=== PATIENT | male | born 1995 | race Caucasian/White ===

== ENCOUNTER → 2017-08-24 | Outpatient (CLI) | payer OTHER ==
--- NOTE | 2017-08-24 13:53 | MR ---
EXAMINATION TYPE: MR brain wo con DATE OF EXAM: 08/24/2017 COMPARISON: 10/16/2010 HISTORY: Cerebellar Ataxia T1-weighted sagittal, T2, FLAIR, and diffusion axial, and T2 coronal coronal views of the brain are s ubmitted. There is no evidence of acute ischemia. The ventricles, basal cisterns, and sulci overlying the conv exities are consistent with the patient's age. There is no mass effect. Craniocervical junction maintained. Sella turcica has a normal appearance. No cerebellopontine angle mass. Changes of chronic sinusitis noted. Nasal septal deviation noted. 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 This is increased in size from the previous exam. Cerebellum has a stable appearance relative to the prior exam. No definite abnormal signal. IMPRESSION: 1. No acute intracranial process. 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
== END | disposition home or self-care (01) ==
LOC: RADMRIMAIN 12:09
PROVIDERS: ATTEND Psychiatry & Neurology Neurology
DX: E34.8 Other specified endocrine disorders (principal); G11.9 Hereditary ataxia, unspecified
CPT/HCPCS: 36415; 70551; 84210

== ENCOUNTER 2022-12-21 15:23 | Inpatient (IN) | payer MEDICARE, OTHER ==
--- NOTE | 2022-12-21 16:59 | ED ---
General Adult HPI - General Chief complaint: Wound/Laceration Stated complaint: R 2nd toe ulcer Time Seen by Provider: 12/21/22 16:41 Source: patient, RN notes reviewed Mode of arrival: wheelchair Limitations: physical limitation - History of Present Illness Initial comments: 27-year-old male presents to the emergency department with chief complaint of ulcer on right second toe that his been there for many months. He states that he saw a feeder operator automatic today who sent him to the emergency department for evaluation of bone involvement. He reports that he occasionally gets shooting pains up his leg starting from the toes. He states that he has been on antibiotics for the past 20 days. Patient has past medical history of Friedreich's ataxia. Patient states that he is a non-diabetic. Denies fever, chills. - Related Data Home Medications Medication Instructions Recorded Confirmed Aspirin EC [Ecotrin Low Dose] 243 mg PO TID 12/21/22 12/21/22 Allergies Allergy/AdvReac Type Severity Reaction Status Date / Time No Known Allergies Allergy Verified 12/21/22 19:14 Review of Systems ROS Statement: Those systems with pertinent positive or pertinent negative responses have been documented in the HPI. ROS Other: All systems not noted in ROS Statement are negative. Past Medical History Additional Past Medical History / Comment(s): ataxia, wheelchair bound History of Any Multi-Drug Resistant Organisms: None Reported Past Surgical History: No Surgical Hx Reported Past Psychological History: ADD/ADHD, Bipolar Smoking Status: Current every day smoker Past Alcohol Use History: Occasional Past Drug Use History: Marijuana General Exam Limitations: physical limitation General appearance: alert, in no apparent distress Head exam: Present: atraumatic, normocephalic, normal inspection Eye exam: Present: normal appearance, PERRL, EOMI. Absent: scleral icterus, conjunctival injection, periorbital swelling ENT exam: Present: normal exam, mucous membranes moist Neck exam: Present: normal inspection. Absent: tenderness, meningismus, lymphadenopathy Respiratory exam: Present: normal lung sounds bilaterally. Absent: respiratory distress, wheezes, rales, rhonchi, stridor Cardiovascular Exam: Present: regular rate, normal rhythm, normal heart sounds. Absent: systolic murmur, diastolic murmur, rubs, gallop, clicks Extremities exam: Present: tenderness, pedal edema, other (Ulcer to right second toe medially, DP and PT pulses equal bilaterally, pitting edema in bilateral low er extremities). Absent: calf tenderness Neurological exam: Present: alert, oriented X3 Psychiatric exam: Present: normal affect, normal mood Skin exam: Present: warm, dry, other (Ulcer to right second toe) Course Vital Signs 12/21/22 16:28 Temperature 98.5 F Pulse Rate 114 H Respiratory 18 Rate Blood Pressure 136/82 O2 Sat by Pulse 97 Oximetry Medical Decision Making - Medical Decision Making Was pt. sent in by a medical professional or institution (, KRISTOFER, DOCUMENT REVIEW SPECIALIST, urgent care, hospital, or snf...) When possible be specific @ -No Did you speak to anyone other than the patient for history (EMS, parent, family, police, friend...)? What history was obtained from this source @ -No Did you review nursing and triage notes (agree or disagree)? Why? @ -I reviewed and agree with nursing and triage notes Were old charts reviewed (outside hosp., previous admission, EMS record, old EKG, old radiological studies, urgent care reports/EKG's, snf records)? Report findings @ -No old charts were reviewed Differential Diagnosis (chest pain, altered mental status, abdominal pain women, abdominal pain men, vaginal bleeding, weakness, fever, dyspnea, syncope, headache, dizziness, GI bleed, back pain, seizure, CVA, palpatations, mental health, musculoskeletal)? @ -Differential Musculoskeletal Muscular strain, contusion, ligament sprain, fracture, arthritis, septic arthritis, bursitis, cellulitis, muscle spasm, nerve compression, DVT, arterial occlusion, herpes zoster, electrolyte abnormality, tumor.... This is not meant to be in all inclusive list EKG interpreted by me (3pts min.). @ -none X-rays interpreted by me (1pt min.). @ -[X-ray foot showed soft tissue swelling, no evidence of acute fracture CT interpreted by me (1pt min.). @ -None done U/S interpreted by me (1pt. min.). @ -None done What testing was considered but not performed or refused? (CT, X-rays, U/S, labs)? Why? @ -None What meds were considered but not given or refused? Why? @ -None Did you discuss the management of the patient with other professionals (professionals i.e. , KRISTOFER, DOCUMENT REVIEW SPECIALIST, lab, RT, psych nurse, psychosocial rehabilitation counselor, machine joiner cementer, teacher, optics technical officer, corrections caseworker)? Give summary @ -management discussed with Dr. Suarez who is accepting of the admission with IV antibiotics, orthopedics, and infectious disease on consult Was smoking cessation discussed for >3mins.? @ -No Was critical care preformed (if so, how long)? @ -No Were there social determinants of health that impacted care today? How? (Homelessness, low income, unemployed, alcoholism, drug addiction, transportation, low edu. Level, literacy, decrease access to med. care, detention, rehab)? @ -No Was there de-escalation of care discussed even if they declined (Discuss DNR or withdrawal of care, Hospice)? DNR status @ -No What co-morbidities impacted this encounter? (DM, HTN, Smoking, COPD, CAD, Cancer, CVA, ARF, Chemo, Hep., AIDS, mental health diagnosis, sleep apnea, morbid obesity)? @ -None Was patient admitted / discharged? Hospital course, mention meds given and ro jeanette, prescriptions, significant lab abnormalities, going to OR and other pertinent info. @ -Admitted. Patient presented to the emergency department with chief complaint of right second toe ulcer that has been there for months. Patient reports that he has been on oral antibiotics for the past 20 days. He saw his feeder operator automatic today who recommended him to come evaluated in the emergency department for this ulcer with the concern of osteomyelitis. CBC, CMP within normal limits. X-ray showed no obvious bony erosion. Patient is failing PO antibiotics. Case discussed with Dr. Suarez is accepting of the admission for IV antibiotics. He recommended orthopedic consult and infectious disease consult. Undiagnosed new problem with uncertain prognosis? @ -No Drug Therapy requiring intensive monitoring for toxicity (Heparin, Nitro, Insulin, Cardizem)? @ -No Were any procedures done? @ -No Diagnosis/symptom? @ - nonhealing ulcer right 2nd toe Acute, or Chronic, or Acute on Chronic? @ -acute on chronic Uncomplicated (without systemic symptoms) or Complicated (systemic symptoms)? @ -uncomplicated Side effects of treatment? @ -No Exacerbation, Progression, or Severe Exacerbation? @ -No Poses a threat to life or bodily function? How? (Chest pain, USA, SC, pneumonia, PE, COPD, DKA, ARF, appy, cholecystitis, CVA, Diverticulitis, Homicidal, Suicidal, threat to staff... and all critical care pts) @ -No - Lab Data Result diagrams: 12/21/22 17:50 12/21/22 17:50 Disposition Clinical Impression: Ulcer of toe of right foot, Nonhealing skin ulcer Disposition: ADMITTED IP TO THIS HOSP Condition: Stable Is patient prescribed a controlled substance at d/c from ED?: No
[2022-12-21 18:00] LABS: Basophils % (A) 0 %; Eosinophils # (A) 0.3 k/uL (0-0.7); Eosinophils % (A) 3 %; HCT 47.7 % (39.0-53.0); HGB 16.4 gm/dL (13.0-17.5); Lymphocytes % (A) 24 %; MCH 32.9 pg (25.0-35.0); MCHC 34.4 g/dL (31.0-37.0); MCV 95.6 fL (80.0-100.0); Mean Platelet Volume 9.1; Monocytes # (A) 0.4 k/uL (0-1.0); Monocytes % (A) 5 %; Neutrophils # (A) 5.6 k/uL (1.3-7.7); Neutrophils % (A) 67 %; Platelet Count 162 k/uL (150-450); RBC 4.99 m/uL (4.30-5.90); RDW 13.9 % (11.5-15.5); WBC 8.4 k/uL (3.8-10.6)
[2022-12-21 18:12] LABS: ALT 71 U/L (4-49); AST 45 U/L (17-59); African American GFR (CKD) >90 (>60 ml/min/1.73 sqM); Albumin 4.5 g/dL (3.5-5.0); Alkaline Phosphatase 70 U/L (38-126); Anion Gap 10 mmol/L; Blood Urea Nitrogen 14 mg/dL (9-20); C Reactive Protein 0.7 mg/dL (<1.0); Calcium 9.7 mg/dL (8.4-10.2); Carbon Dioxide 26 mmol/L (22-30); Chloride 103 mmol/L (98-107); Glucose 87 mg/dL (74-99); Non-African American GFR(CKD) >90 (>60 ml/min/1.73 sqM); Potassium 4.2 mmol/L (3.5-5.1); Sodium 139 mmol/L (137-145); Total Bilirubin 0.7 mg/dL (0.2-1.3); Total Protein 8.1 g/dL (6.3-8.2)
--- NOTE | 2022-12-21 18:13 | XR ---
EXAMINATION TYPE: XR foot complete RT DATE OF EXAM: 12/21/2022 5:59 PM INDICATION: Patient age:Male; 27 years old; Reason for study: ulcer 2nd toe, please emphasize 2nd digit; COMPARISON: None TECHNIQUE: The right foot was examined in the AP, oblique, and lateral projections. FINDINGS: No evidence of osseous erosion. Soft tissue swelling throughout the foot. Limited evaluation lateral view secondary overlapping soft tissues. No evidence of any acute osseous pathology. No evidence of soft tissue swelling. Joints are preserved. IMPRESSION: 1. Soft tissue swelling without evidence of erosion. No areas Limited evaluation of the foot given p rojections. 2. No evidence of acute fracture.
[2022-12-21] MEDS ORDERED: ACETAMINOPHEN TAB 325 MG TAB PO PRN (18:33)
[2022-12-21] MEDS ORDERED: NALOXONE 0.4 MG/ML 1 ML VIAL IV PRN (18:33)
[2022-12-21] MEDS: KETOROLAC 15 MG/ML 1 ML VIAL IVP PRN (19:18)
[2022-12-21] MEDS: AMPICILLIN-SULBACTAM 3 GM in SODIUM CHLORIDE 0.9% 100 ML IVPB SCH (19:24)
[2022-12-21 19:44] LABS: Erythrocyte Sedimentation Rate 5 mm/hr (0-15)
[2022-12-21] MEDS: SODIUM CHLORIDE 0.9% 1,000 ML IV SCH (20:01)
[2022-12-22] MEDS: AMPICILLIN-SULBACTAM 3 GM in SODIUM CHLORIDE 0.9% 100 ML IVPB SCH ×4 (00:32→18:21)
[2022-12-22] MEDS: KETOROLAC 15 MG/ML 1 ML VIAL IVP PRN ×2 (01:24→18:20)
--- NOTE | 2022-12-22 12:31 | P.CNOR ---
History of Present Illness - HPI Consult date: 12/22/22 History of present illness: This is a 27-year-old male who is admitted for right foot ulcer. Orthopedics is consulted for further evaluation. Patient is seen and evaluated at bedside today and states that he's had a wound on his right second toe for at least 2 months. Patient states that he may have bumped the toe on something, but he c annot remember how it started. Patient states that he was treated with oral antibiotics by a molasses and caramel operator and recently followed up with a different molasses and caramel operator and was sent to the emergency room. Patient states he is unable to walk and has a history of Friedreich's ataxia. Patient denies being diabetic. Patient denies any fever/chills, numbness or tingling. Review of Systems See HPI. Past Medical History Additional Past Medical History / Comment(s): ataxia, wheelchair bound, History of Any Multi-Drug Resistant Organisms: None Reported Past Surgical History: No Surgical Hx Reported Past Anesthesia/Blood Transfusion Reactions: No Reported Reaction Past Psychological History: ADD/ADHD, Bipolar Smoking Status: Current every day smoker Past Alcohol Use History: Occasional Past Drug Use History: Marijuana Medications and Allergies Home Medications Medication Instructions Recorded Confirmed Type Aspirin EC [Ecotrin Low Dose] 243 mg PO TID 12/21/22 12/21/22 History Allergies Allergy/AdvReac Type Severity Reaction Status Date / Time No Known Allergies Allergy Verified 12/21/22 19:14 Physical Examination On exam patient is resting comfortably in bed in no acute distress. Patient is alert and oriented 3. There is a wound over the right second toe with mild to moderate swelling of the right foot. There is also a small ulcer over the dorsal aspect of the midfoot. There is no active drainage. Mild erythema over the toes of the right foot. Results X-rays of the right foot are reviewed and are negative. - Labs Labs: Abnormal Lab Results - Last 24 Hours (Table) 12/21/22 Range/Units 17:50 ALT 71 H (4-49) U/L H & H 12/21/22 Range/Units 17:50 Hgb 16.4 (13.0-17.5) gm/dL Hct 47.7 (39.0-53.0) % Result Diagrams: 12/21/22 17:50 12/21/22 17:50 Assessment and Plan (1) Ulcer of toe of right foot Current Visit: Yes Status: Acute Code(s): L97.519 - NON-PRS CHRONIC ULCER OTH PRT RIGHT FOOT W UNSP SEVERITY SNOMED Code(s): [id number] Plan: Patient is seen and evaluated at bedside today. X-rays are reviewed and are negative. There is no surgical intervention planned from an orthopedic standpoint. Recommend a consult to vascular surgery.
[2022-12-22] MEDS: ASPIRIN 81 MG PO SCH ×3 (13:12→21:24)
[2022-12-22] MEDS: SODIUM CHLORIDE 0.9% 1,000 ML IV SCH (13:12)
[2022-12-22] MEDS ORDERED: MELATONIN 3 MG TABLET PO PRN (13:58)
[2022-12-22] MEDS ORDERED: ONDANSETRON 4 MG/2 ML VIAL IVP PRN (13:58)
[2022-12-22] MEDS ORDERED: CALCIUM CARBONATE 500 MG CHEWABLE PO PRN (13:58)
[2022-12-22] MEDS ORDERED: LORazepam 0.5 MG TAB PO PRN (13:58)
[2022-12-22] MEDS ORDERED: LACTULOSE 20 GM/30 ML CUP PO PRN (13:58)
--- NOTE | 2022-12-22 14:03 | P.HPIM ---
History of Present Illness H&P Date: 12/22/22 Chief Complaint: Right foot second toe infection This is a 27-year-old patient who follows with Dr. Louis Rachel. Patient has long-standing Maksim ataxia. Patient on empiric treatment does use a wheelchair to get about. Does smoke about half a pack a day and does marijuana half a joint daily. Lives with his grandfather. Patient hit his foot against the site of a bunk bed. Progressively the toe was covered discolored. Some drainage. Denies any fever and chills. It is painful. He went to see a costume specialist yesterday and was sent to the ER. Consultation to orthopedics and ID was made. Patient started on IV Unasyn. Review of systems: GEN.: None EYES: None HEENT: None NECK: None RESPIRATORY: None CARDIOVASCULAR: None GASTROINTESTINAL: None GENITOURINARY: None MUSCULOSKELETAL: As above LYMPHATICS: None HEMATOLOGICAL: None PSYCHIATRY: None NEUROLOGICAL: Bit of slurred speech Past medical history to include: Maksim ataxia. Bipolar Social history: Lives with grandfather. Smokes half a packet of cigarettes a day. Does marijuana half a joint a day. Physical examination: VITAL SIGNS: 97.7, 89, 16, 109/75, 93% on 2 L GENERAL: BMI 27.5, declining but awake not in distress. EYES: Pupils equal. Conjunctiva normal. HEENT: External appearance of nose and ears normal, oral cavity grossly normal. NECK: JVD not raised; masses not palpable. HEART: First and second heart sounds are normal; no edema. LUNGS: Respiratory rate normal; clear to auscultation. ABDOMEN: Soft, nontender, liver spleen not palpable, no masses palpable. PSYCH: Alert and oriented x3; mood and affect normal. MUSCULOSKELETAL:No Clubbing/cyanosis;muscles-grossly intact. Right foot second toe. Discolored. Local tenderness. Some breakdown of skin. Redness. NEUROLOGICAL: Slightly slow speech. Some weakness of lower extremity.]. LYMPHATICS: No lymph nodes palpable in the axilla and neck INVESTIGATIONS, reviewed in the clinical context: White count 8.4 hemoglobin 16.4 platelets 162 sodium 139 potassium 4.2 BUN 14 creatinine 0.87 CRP 0.7 X-ray foot complete right: Soft tissue swelling without evidence of erosion. No fracture. Assessment and plan: -Possible acute dactylitis right foot second toe. Secondary to trauma about 2 months ago. Local tenderness pain. No fever no white count. Started IV Unasyn. Orthopedics was consulted. They want vascular opinion. Follow with ID. No obvious osteomyelitis. -Chronic medical debility from underlying Maksim ataxia Chronically uses a wheelchair. -Maksim ataxia Care was discussed with the patient. Await input from ID and vascular. Past Medical History Additional Past Medical History / Comment(s): ataxia, wheelchair bound, History of Any Multi-Drug Resistant Organisms: None Reported Past Surgical History: No Surgical Hx Reported Past Anesthesia/Blood Transfusion Reactions: No Reported Reaction Past Psychological History: ADD/ADHD, Bipolar Smoking Status: Current every day smoker Past Alcohol Use History: Occasional Past Drug Use History: Marijuana Medications and Allergies Home Medications Medication Instructions Recorded Confirmed Type Aspirin EC [Ecotrin Low Dose] 243 mg PO TID 12/21/22 12/21/22 History Allergies Allergy/AdvReac Type Severity Reaction Status Date / Time No Known Allergies Allergy Verified 12/21/22 19:14 Physical Exam Vitals: Vital Signs Temp Pulse Pulse Resp BP BP Pulse Ox 12/22/22 07:52 97.7 F 89 16 109/75 93 L 12/22/22 01:48 97.7 F 84 19 106/69 93 L 12/21/22 22:53 97.9 F 102 H 19 127/78 96 12/21/22 21:45 98 20 128/80 96 12/21/22 16:28 98.5 F 114 H 18 136/82 97 Intake and Output 12/21/22 12/22/22 12/22/22 22:59 06:59 14:59 Output Total 400 Balance -400 Output: Urine 400 Other: Voiding Method Urinal Weight 113.398 kg Results CBC & Chem 7: 12/21/22 17:50 12/21/22 17:50 Labs: Abnormal Lab Results - Last 24 Hours (Table) 12/21/22 Range/Units 17:50 ALT 71 H (4-49) U/L Thrombosis Risk Factor Assmnt - Choose All That Apply Any of the Below Risk Factors Present?: No Other Risk Factors: No Other congenital or acquired thrombophilia - If yes, enter type in comment: No Thrombosis Risk Factor Assessment Level: Very Low Risk
[2022-12-22] MEDS: ENOXAPARIN 40 MG/0.4 ML SYRINGE SQ SCH (16:33)
[2022-12-22] MEDS: NICOTINE 14MG/24HR PATCH TRANSDERM SCH (16:33)
--- NOTE | 2022-12-22 18:12 | P.GSCN ---
History of Present Illness History of present illness: 27-year-old gentleman patient has history of trauma to the right foot second toe for the past to month. Patient has been treating himself at home patient has been admitted to consult for reevaluation x-ray of the foot shows no evidence of any fracture Neck is supple no bruit appreciated Chest is clear good and both lungs first and second sound normal Abdomen soft nontender Vascular femorals are 1+ be PT 1+ right foot second toe has some mild discoloration there is scab formation noted on the dorsal aspect of the second toe with mild drainage Weeks in the wound with saline and we took some culture and we'll replace medihoney gel have we'll watch very closely at this point no surgical intervention needed patient is an IV antibiotic under care of infectious disease we will follow with you Past Medical History Additional Past Medical History / Comment(s): ataxia, wheelchair bound, History of Any Multi-Drug Resistant Organisms: None Reported Past Surgical History: No Surgical Hx Reported Past Anesthesia/Blood Transfusion Reactions: No Reported Reaction Past Psychological History: ADD/ADHD, Bipolar Smoking Status: Current every day smoker Past Alcohol Use History: Occasional Past Drug Use History: Marijuana Medications and Allergies Home Medications Medication Instructions Recorded Confirmed Type Aspirin EC [Ecotrin Low Dose] 243 mg PO TID 12/21/22 12/21/22 History Allergies Allergy/AdvReac Type Severity Reaction Status Date / Time No Known Allergies Allergy Verified 12/21/22 19:14 Surgical - Exam Vital Signs Temp Pulse Resp BP Pulse Ox 98.5 F 114 H 18 136/82 97 12/21/22 16:28 12/21/22 16:28 12/21/22 16:28 12/21/22 16:28 12/21/22 16:28 Results - Labs 12/21/22 17:50 12/21/22 17:50 Abnormal Lab Results - Last 24 Hours (Table) 12/21/22 Range/Units 17:50 ALT 71 H (4-49) U/L Diabetes panel 12/21/22 Range/Units 17:50 Sodium 139 (137-145) mmol/L Potassium 4.2 (3.5-5.1) mmol/L Chloride 103 (98-107) mmol/L Carbon Dioxide 26 (22-30) mmol/L BUN 14 (9-20) mg/dL Creatinine 0.87 (0.66-1.25) mg/dL Glucose 87 (74-99) mg/dL Calcium 9.7 (8.4-10.2) mg/dL AST 45 (17-59) U/L ALT 71 H (4-49) U/L Alkaline Phosphatase 70 (38-126) U/L Total Protein 8.1 (6.3-8.2) g/dL Albumin 4.5 (3.5-5.0) g/dL Calcium panel 12/21/22 Range/Units 17:50 Calcium 9.7 (8.4-10.2) mg/dL Albumin 4.5 (3.5-5.0) g/dL Pituitary panel 12/21/22 Range/Units 17:50 Sodium 139 (137-145) mmol/L Potassium 4.2 (3.5-5.1) mmol/L Chloride 103 (98-107) mmol/L Carbon Dioxide 26 (22-30) mmol/L BUN 14 (9-20) mg/dL Creatinine 0.87 (0.66-1.25) mg/dL Glucose 87 (74-99) mg/dL Calcium 9.7 (8.4-10.2) mg/dL Adrenal panel 12/21/22 Range/Units 17:50 Sodium 139 (137-145) mmol/L Potassium 4.2 (3.5-5.1) mmol/L Chloride 103 (98-107) mmol/L Carbon Dioxide 26 (22-30) mmol/L BUN 14 (9-20) mg/dL Creatinine 0.87 (0.66-1.25) mg/dL Glucose 87 (74-99) mg/dL Calcium 9.7 (8.4-10.2) mg/dL Total Bilirubin 0.7 (0.2-1.3) mg/dL AST 45 (17-59) U/L ALT 71 H (4-49) U/L Alkaline Phosphatase 70 (38-126) U/L Total Protein 8.1 (6.3-8.2) g/dL Albumin 4.5 (3.5-5.0) g/dL
--- NOTE | 2022-12-22 22:19 | P.CONS ---
History of Present Illness - Reason for Consult Consult date: 12/22/22 - History of Present Illness Patient is a 27-year-old male with a past medical history significant for ADHD and bipolar ataxia and wheelchair-bound presenting to the hospital for evaluation of ulcer to the right second toe that the pain has been there for few months initially started with a formal and the patient mention has been treated with multiple courses of antibiotic and local treatment however did not have any improvement patient with complaining of pain to the right second toe to be more of a throbbing 7-8 out of 10 worse with touching denies any significant drainage or high-grade fever the patient was evaluated on arrival to the ER the patient was afebrile and no fever has been going subsequently patient was tachycardic but not hypoxic or hypotension patient did have a normal white count with no left shift kidney function has been normal patient did have x-ray of the foot no evidence of any fracture soft tissue swelling without evidence of erosion patient was admitted to the hospital started on Unasyn infectious was consulted for further management of antibiotic therapy Past Medical History Additional Past Medical History / Comment(s): ataxia, wheelchair bound, History of Any Multi-Drug Resistant Organisms: None Reported Past Surgical History: No Surgical Hx Reported Past Anesthesia/Blood Transfusion Reactions: No Reported Reaction Past Psychological History: ADD/ADHD, Bipolar Smoking Status: Current every day smoker Past Alcohol Use History: Occasional Past Drug Use History: Marijuana Medications and Allergies Home Medications Medication Instructions Recorded Confirmed Type Aspirin EC [Ecotrin Low Dose] 243 mg PO TID 12/21/22 12/21/22 History Allergies Allergy/AdvReac Type Severity Reaction Status Date / Time No Known Allergies Allergy Verified 12/21/22 19:14 Physical Exam Vitals: Vital Signs Temp Pulse Pulse Resp BP BP Pulse Ox 12/22/22 07:52 97.7 F 89 16 109/75 93 L 12/22/22 01:48 97.7 F 84 19 106/69 93 L 12/21/22 22:53 97.9 F 102 H 19 127/78 96 12/21/22 21:45 98 20 128/80 96 12/21/22 16:28 98.5 F 114 H 18 136/82 97 Intake and Output 12/21/22 12/22/22 12/22/22 22:59 06:59 14:59 Output Total 400 Balance -400 Output: Urine 400 Other: Voiding Method Urinal Weight 113.398 kg Results CBC & Chem 7: 12/21/22 17:50 12/21/22 17:50 Labs: Abnormal Lab Results - Last 24 Hours (Table) 12/21/22 Range/Units 17:50 ALT 71 H (4-49) U/L Assessment and Plan Plan: 1patient with right second toe wound traumatic and cellulitis failing outpatient antibiotic therapy x-rays were negative for any bony changes patient did not have any fever or elevated white count today suspicion low for deep infection and will need to cover for the gram-positive skin shanika to the likely pathogen 2-local wound culture to guide further antibiotic therapy 3-patient to continue with Unasyn 3 g every 6 hours We will follow on clinical condition and cultures to further adjust medication if needed Thank you for this consultation we will follow the patient along with you Dictation was produced using [employer] dictation software. please excuse any grammatical, word or spelling errors. Time with Patient: Greater than 30
[2022-12-23] MEDS: AMPICILLIN-SULBACTAM 3 GM in SODIUM CHLORIDE 0.9% 100 ML IVPB SCH ×3 (00:04→13:39)
[2022-12-23] MEDS: SODIUM CHLORIDE 0.9% 1,000 ML IV SCH ×2 (00:05→13:41)
[2022-12-23] MEDS: ENOXAPARIN 40 MG/0.4 ML SYRINGE SQ SCH (09:29)
[2022-12-23] MEDS: ASPIRIN 81 MG PO SCH ×2 (09:29→09:39)
[2022-12-23] MEDS: NICOTINE 14MG/24HR PATCH TRANSDERM SCH (09:39)
[2022-12-23 13:30] VITALS: BP 113/78; PULSE 82; RESP 16; TEMP 97.2
--- NOTE | 2022-12-23 16:44 | P.DS ---
Providers Date of admission: 12/21/22 17:27 Expected date of discharge: 12/23/22 Attending physician: Shen Suarez Consults: 12/21/22 18:33 Consult Physician Routine Consulting Provider: Miley Vo Consult Reason/Comments: foot ulcer Do you want consulting provider notified?: Yes 12/22/22 12:42 Consult Physician Routine Consulting Provider: Ovi Cabral Consult Reason/Comments: toe infection Do you want consulting provider notified?: Yes Primary care physician: Louis Rachel [facility] Course: Chief Complaint: Right foot second toe infection This is a 27-year-old patient who follows with Dr. Louis Rachel. Patient has long-standing Maksim ataxia. Patient on empiric treatment does use a wheelchair to get about. Does smoke about half a pack a day and does marijuana half a joint daily. Lives with his grandfather. Patient hit his foot against the site of a bunk bed. Progressively the toe was covered discolored. Some drainage. Denies any fever and chills. It is painful. He went to see a telegraph service rater yesterday and was sent to the ER. Consultation to orthopedics and ID was made. Patient started on IV Unasyn. 12/23/2022: Patient comfortable. Tolerating diet. No fever. No white count. Discussed with ID. She'll be discharged on Augmentin for 10 days. He'll follow-up with ID and Dr. Romero outpatient. Wound care per Dr. Cabral. Past medical history to include: Maksim ataxia. Bipolar Social history: Lives with grandfather. Smokes half a packet of cigarettes a day. Does marijuana half a joint a day. Physical examination: VITAL SIGNS: 97.2, 82, 16, 113 with 78, 95% room air GENERAL: BMI 27.5, reclining, comfortable EYES: Pupils equal. Conjunctiva normal. HEENT: External appearance of nose and ears normal, oral cavity grossly normal. NECK: JVD not raised; masses not palpable. HEART: First and second heart sounds are normal; no edema. LUNGS: Respiratory rate normal; clear to auscultation. ABDOMEN: Soft, nontender, liver spleen not palpable, no masses palpable. PSYCH: Alert and oriented x3; mood and affect normal. MUSCULOSKELETAL:No Clubbing/cyanosis;muscles-grossly intact. Right foot second toe. Discolored. Local tenderness. Some breakdown of skin. Redness. NEUROLOGICAL: Slightly slow speech. Some weakness of lower extremity.]. INVESTIGATIONS, reviewed in the clinical context: White count 8.4 hemoglobin 16.4 platelets 162 sodium 139 potassium 4.2 BUN 14 creatinine 0.87 CRP 0.7 X-ray foot complete right: Soft tissue swelling without evidence of erosion. No fracture. Assessment and plan: -Possible acute dactylitis right foot second toe. Secondary to trauma about 2 months ago. Osteomyelitis ruled out. Received IV Unasyn. 10 days of Augmentin. Follow-up with ID and Dr. Romero outpatient. Wound care -Chronic medical debility from underlying Maksim ataxia Chronically uses a wheelchair. -Maksim ataxia Disposition: Home Plan - Discharge Summary Discharge Rx Participant: No New Discharge Prescriptions: New Nicotine 14Mg/24Hr Patch [Habitrol] 1 patch TRANSDERM DAILY #14 patch Acetaminophen Tab [Tylenol] 650 mg PO Q6HR PRN tab PRN Reason: Mild Pain Or Fever > 100.5 Amoxic-Pot Clav 875-125Mg [Augmentin 875-125] 1 tab PO BID #20 tab Continue Aspirin EC [Ecotrin Low Dose] 243 mg PO TID Discharge Medication List Aspirin EC [Ecotrin Low Dose] 243 mg PO TID 12/21/22 [History] Acetaminophen Tab [Tylenol] 650 mg PO Q6HR PRN tab 12/23/22 [Rx] Amoxic-Pot Clav 875-125Mg [Augmentin 875-125] 1 tab PO BID #20 tab 12/23/22 [Rx] Nicotine 14Mg/24Hr Patch [Habitrol] 1 patch TRANSDERM DAILY #14 patch 12/23/22 [Rx] Follow up Appointment(s)/Referral(s): Louis Rachel MD [Primary Care Provider] - 01/05/23 11:00 am ( ) Ovi Cabral MD [STAFF PHYSICIAN] - 12/30/22 11:30 am Miley Vo MD [STAFF PHYSICIAN] - 01/03/23 1:45 pm Patient Instructions/Handouts: Amoxicillin/Clavulanate Potassium (By mouth), Nicotine (Absorbed through the skin) Activity/Diet/Wound Care/Special Instructions: wound care per dr jerilyn Elise gel to wound on RT 2nd Toe and cover with Gauze every other day
[2022-12-23] MEDS: KETOROLAC 15 MG/ML 1 ML VIAL IVP PRN (17:28)
== END 2022-12-23 18:28 | disposition home or self-care (01) | DRG 593 ==
LOC: EC 15:23 → 5NMEDONC 17:27
PROVIDERS: ADMIT Hospitalist; ATTEND Hospitalist
DX: L97.519 Non-pressure chronic ulcer of other part of right foot with unspecified severity (principal); G11.11 Friedreich ataxia; L08.9 Local infection of the skin and subcutaneous tissue, unspecified; Z28.311 Partially vaccinated for COVID-19; Z28.21 Immunization not carried out because of patient refusal; F31.9 Bipolar disorder, unspecified; T14.90XS Injury, unspecified, sequela; R53.81 Other malaise; Z99.3 Dependence on wheelchair; F90.9 Attention-deficit hyperactivity disorder, unspecified type; Z79.82 Long term (current) use of aspirin; Z79.899 Other long term (current) drug therapy; F17.210 Nicotine dependence, cigarettes, uncomplicated
CPT/HCPCS: 36415; 80053; 83605; 85025; 85652; 86140; 87040; 87070; 87205; 96361; 96365; 96375; 99284

== ENCOUNTER 2023-01-29 22:54 | Inpatient (IN) | payer MEDICARE, OTHER ==
--- NOTE | 2023-01-30 00:09 | ED ---
General Adult HPI - General Source: patient, EMS Mode of arrival: EMS Limitations: no limitations <Singh Schroeder - Last Filed: 01/30/23 05:23> <Meghan Pruitt - Last Filed: 01/30/23 06:55> - General Chief complaint: Skin/Abscess/Foreign Body Stated complaint: Infection Time Seen by Provider: 01/29/23 23:15 - History of Present Illness Initial comments: 27-year-old male with past medical history significant for Fredereich's ataxia presents to the ED with a chief complaint of toe pain. Patient discharged on 12/23/22. At this time, patient hit his right foot against the side of his bunk bed. His right second toe progressively became more discolored and started to drain. Patient ended up presenting to the ED on 12/21/22. Patient was treated with IV antibiotics. Discharged with prescription for Augmentin. Patient follow-up with Dr. Vo and has been on Augmentin since his discharge. However, despite continuing antibiotics as prescribed patient notes worsening pain of his right second toe. Additionally, notes over the past few weeks has developed swelling of his left lower extremity that has now become ulcerated also notes pain of this. Denies fever. Denies chest pain shortness of breath. No other complaints. (Singh Schroeder) - Related Data Home Medications Medication Instructions Recorded Confirmed Aspirin EC [Ecotrin Low Dose] 243 mg PO TID 12/21/22 12/21/22 Previous Rx's Medication Instructions Recorded Acetaminophen Tab [Tylenol] 650 mg PO Q6HR PRN tab 12/23/22 Amoxic-Pot Clav 875-125Mg 1 tab PO BID #20 tab 12/23/22 [Augmentin 875-125] Nicotine 14Mg/24Hr Patch [Habitrol] 1 patch TRANSDERM DAILY #14 patch 12/23/22 Allergies Allergy/AdvReac Type Severity Reaction Status Date / Time No Known Allergies Allergy Verified 01/29/23 23:19 Review of Systems ROS Other: All systems not noted in ROS Statement are negative. <Singh Schroeder - Last Filed: 01/30/23 05:23> ROS Other: All systems not noted in ROS Statement are negative. <Meghan Pruitt - Last Filed: 01/30/23 06:55> ROS Statement: Those systems with pertinent positive or pertinent negative responses have been documented in the HPI. Past Medical History Additional Past Medical History / Comment(s): ataxia, wheelchair bound, History of Any Multi-Drug Resistant Organisms: None Reported Past Surgical History: No Surgical Hx Reported Past Anesthesia/Blood Transfusion Reactions: No Reported Reaction Past Psychological History: ADD/ADHD, Bipolar Smoking Status: Current every day smoker Past Alcohol Use History: Occasional Past Drug Use History: Marijuana <Singh Schroeder - Last Filed: 01/30/23 05:23> General Exam Limitations: no limitations, physical limitation (Arrived in a wheelchair. Limited movement of the lower extremity.) ENT exam: Present: mucous membranes moist Neck exam: Present: normal inspection Respiratory exam: Present: normal lung sounds bilaterally, respiratory distress GI/Abdominal exam: Present: soft (No tenderness to palpation. No rebound guarding or rigidity.) Extremities exam: Present: other (Decreased strength and sensation of the lower extremity which patient reports is currently at baseline. Right second toe with ulcer on the second aspect and surrounding skin changes. Good sensation on the plantar aspect of the toe. ) Left Lower Leg exam: Present: swelling (Left lower extremity shows 1+ pitting edema with chronic venous changes and ulceration.) Neurological exam: Present: alert, oriented X3 Skin exam: Present: warm, dry <Singh Schroeder - Last Filed: 01/30/23 05:23> Course Vital Signs 01/29/23 01/30/23 01/30/23 23:00 01:32 02:00 Temperature 97.3 F L Pulse Rate 94 89 94 Respiratory 20 18 20 Rate Blood Pressure 113/81 113/71 122/71 O2 Sat by Pulse 98 97 97 Oximetry 01/30/23 01/30/23 01/30/23 03:17 04:27 05:02 Temperature Pulse Rate 88 98 89 Respiratory 18 18 18 Rate Blood Pressure 106/65 109/62 115/66 O2 Sat by Pulse 96 97 96 Oximetry 01/30/23 06:03 Temperature Pulse Rate 97 Respiratory 19 Rate Blood Pressure 108/62 O2 Sat by Pulse 96 Oximetry Medical Decision Making - Lab Data Result diagrams: 01/30/23 00:03 01/30/23 00:03 <Singh Schroeder - Last Filed: 01/30/23 05:23> - Lab Data Result diagrams: 01/30/23 00:03 01/30/23 00:03 <Meghan Pruitt A - Last Filed: 01/30/23 06:55> - Medical Decision Making Was pt. sent in by a medical professional or institution (KRISTOFER Pfeiffer, CLINICAL REIMBURSEMENT SPECIALIST, urgent care, hospital, or intermediate...) When possible be specific @ -No Did you speak to anyone other than the patient for history (EMS, parent, family, police, friend...)? What history was obtained from this source @ -No Did you review nursing and triage notes (agree or disagree)? Why? @ -I reviewed and agree with nursing and triage notes Were old charts reviewed (outside hosp., previous admission, EMS record, old EKG, old radiological studies, urgent care reports/EKG's, intermediate records)? Report findings @ -No old charts were reviewed Differential Diagnosis (chest pain, altered mental status, abdominal pain women, abdominal pain men, vaginal bleeding, weakness, fever, dyspnea, syncope, headache, dizziness, GI bleed, back pain, seizure, CVA, palpatations, mental health, musculoskeletal)? @ -Differential Musculoskeletal Muscular strain, contusion, ligament sprain, fracture, arthritis, septic arthri tis, bursitis, cellulitis, muscle spasm, nerve compression, DVT, arterial occlusion, herpes zoster, electrolyte abnormality, tumor.... This is not meant to be in all inclusive list EKG interpreted by me (3pts min.). @ -As above X-rays interpreted by me (1pt min.). @ -X-ray of the foot shows soft tissue swelling over the metatarsals with soft tissue swelling overlying the second digit with gas at the medial aspect of the distal interphalangeal joint. Bones diffusely osteopenic without focal bony destruction of the second joint. X-ray of the left tib-fib shows no acute findings. CT interpreted by me (1pt min.). @ -None done U/S interpreted by me (1pt. min.). @ -None done What testing was considered but not performed or refused? (CT, X-rays, U/S, labs)? Why? @ -None What meds were considered but not given or refused? Why? @ -None Did you discuss the management of the patient with other professionals (professionals i.e. Dr., PA, CLINICAL REIMBURSEMENT SPECIALIST, lab, RT, psych nurse, social director, flight attendant/inflight supervisor, teacher, contract officer, director of casework department)? Give summary @ -Discussed with Dr. Turpin of vascular. Will evaluate the patient. Was smoking cessation discussed for >3mins.? @ -No Was critical care preformed (if so, how long)? @ -No Were there social determinants of health that impacted care today? How? (Homelessness, low income, unemployed, alcoholism, drug addiction, transportation, low edu. Level, literacy, decrease access to med. care, longterm, rehab)? @ -No Was there de-escalation of care discussed even if they declined (Discuss DNR or withdrawal of care, Hospice)? DNR status @ -No What co-morbidities impacted this encounter? (DM, HTN, Smoking, COPD, CAD, Cancer, CVA, ARF, Chemo, Hep., AIDS, mental health diagnosis, sleep apnea, morbid obesity)? @ -Fredreichs ataxia Was patient admitted / discharged? Hospital course, mention meds given and route, prescriptions, significant lab abnormalities, going to OR and other pertinent info. @ -Admission A 27-year-old male past medical history significant for Maksim ataxia previously seen here and discharged after wound on the right second toe. Since discharge has been on Augmentin however worsening. X-ray significant for swelling overlying second digit with gas at the medial aspect of the distal interphalangeal joint. Patient will be admitted with consults to vascular infectious disease. Discussed plan of care with patient who is in agreement. Undiagnosed new problem with uncertain prognosis? @ -No Drug Therapy requiring intensive monitoring for toxicity (Heparin, Nitro, Insulin, Cardizem)? @ -No Were any procedures done? @ -No Diagnosis/symptom? @ -Right second toe wound, swelling and ulceration of left lower extremity. Acute, or Chronic, or Acute on Chronic? @ -Acute on chronic Uncomplicated (without systemic symptoms) or Complicated (systemic symptoms)? @ -default Side effects of treatment? @ -No Exacerbation, Progression, or Severe Exacerbation? @ -No Poses a threat to life or bodily function? How? (Chest pain, [place], [place], pneumonia, PE, COPD, DKA, ARF, appy, cholecystitis, CVA, Diverticulitis, Homicidal, Suicidal, threat to staff... and all critical care pts) @ -No (Singh Schroeder) EKG demonstrates sinus rhythm with rate of 99. NH interval 133. QRS 85. QTC of 406. No acute ST segment elevations or depressions (Meghan Pruitt) - Lab Data Lab Results 01/30/23 01/30/23 01/30/23 Range/Units 00:03 00:03 00:03 WBC 7.2 (3.8-10.6) k/uL RBC 5.00 (4.30-5.90) m/uL Hgb 15.9 (13.0-17.5) gm/dL Hct 47.6 (39.0-53.0) % MCV 95.2 (80.0-100.0) fL MCH 31.8 (25.0-35.0) pg MCHC 33.4 (31.0-37.0) g/dL RDW 13.6 (11.5-15.5) % Plt Count 169 (150-450) k/uL MPV 8.9 Neutrophils % 65 % Lymphocytes % 23 % Monocytes % 7 % Eosinophils % 3 % Basophils % 0 % Neutrophils # 4.6 (1.3-7.7) k/uL Lymphocytes # 1.6 (1.0-4.8) k/uL Monocytes # 0.5 (0-1.0) k/uL Eosinophils # 0.2 (0-0.7) k/uL Basophils # 0.0 (0-0.2) k/uL Sodium 135 L (137-145) mmol/L Potassium 4.4 (3.5-5.1) mmol/L Chloride 101 (98-107) mmol/L Carbon Dioxide 20 L (22-30) mmol/L Anion Gap 14 mmol/L BUN 13 (9-20) mg/dL Creatinine 0.76 (0.66-1.25) mg/dL Est GFR (CKD-EPI)AfAm >90 (>60 ml/min/1.73 sqM) Est GFR (CKD-EPI)NonAf >90 (>60 ml/min/1.73 sqM) Glucose 105 H (74-99) mg/dL Plasma Lactic Acid Arturo 1.6 (0.7-2.0) mmol/L Calcium 9.9 (8.4-10.2) mg/dL Total Bilirubin 0.8 (0.2-1.3) mg/dL AST 64 H (17-59) U/L ALT 65 H (4-49) U/L Alkaline Phosphatase 67 (38-126) U/L Total Protein 8.4 H (6.3-8.2) g/dL Albumin 4.7 (3.5-5.0) g/dL Disposition Time of Disposition: 05:22 <Singh Schroeder - Last Filed: 01/30/23 05:23> <Meghan Pruitt - Last Filed: 01/30/23 06:55> Clinical Impression: Toe infection, Leg swelling Disposition: ADMITTED IP TO THIS HOSP
[2023-01-30 01:22] LABS: Basophils % (A) 0 %; Eosinophils # (A) 0.2 k/uL (0-0.7); Eosinophils % (A) 3 %; HCT 47.6 % (39.0-53.0); HGB 15.9 gm/dL (13.0-17.5); Lymphocytes # (A) 1.6 k/uL (1.0-4.8); Lymphocytes % (A) 23 %; MCH 31.8 pg (25.0-35.0); MCHC 33.4 g/dL (31.0-37.0); MCV 95.2 fL (80.0-100.0); Mean Platelet Volume 8.9; Monocytes # (A) 0.5 k/uL (0-1.0); Monocytes % (A) 7 %; Neutrophils # (A) 4.6 k/uL (1.3-7.7); Neutrophils % (A) 65 %; Platelet Count 169 k/uL (150-450); RDW 13.6 % (11.5-15.5); WBC 7.2 k/uL (3.8-10.6)
[2023-01-30 01:27] LABS: ALT 65 U/L (4-49); AST 64 U/L (17-59); African American GFR (CKD) >90 (>60 ml/min/1.73 sqM); Albumin 4.7 g/dL (3.5-5.0); Alkaline Phosphatase 67 U/L (38-126); Anion Gap 14 mmol/L; Blood Urea Nitrogen 13 mg/dL (9-20); Calcium 9.9 mg/dL (8.4-10.2); Carbon Dioxide 20 mmol/L (22-30); Chloride 101 mmol/L (98-107); Glucose 105 mg/dL (74-99); Non-African American GFR(CKD) >90 (>60 ml/min/1.73 sqM); Potassium 4.4 mmol/L (3.5-5.1); Sodium 135 mmol/L (137-145); Total Bilirubin 0.8 mg/dL (0.2-1.3); Total Protein 8.4 g/dL (6.3-8.2)
[2023-01-30] MEDS ORDERED: MORPHINE SULFATE 4 MG/ML SYRINGE IVP STA (01:35)
--- NOTE | 2023-01-30 03:28 | XR ---
EXAM: XR Right Foot Complete, 3 or More Views CLINICAL HISTORY: r/o osteomyelitis/ostenecrosis r 2nd toe TECHNIQUE: Frontal, lateral and oblique views of the right foot. COMPARISON: 12/21/2022. FINDINGS: Bones/joints: Bones are diffusely osteopenic. No definite focal erosion. No acute fracture. No dislocation. Soft tissues: Mild dorsal soft tissue swelling overlying the metatarsals. Soft tissue swelling surrounding the second digit greatest overlying the distal interphalangeal joint with medial gas. No radiopaque foreign body. IMPRESSION: Soft tissue swelling overlying the metatarsals. Soft tissue swelling overlying the second digit with gas at the medial aspect of the distal interphalangeal joint. Bones are diffusely osteopenic without focal bony destruction of the second digit.
--- NOTE | 2023-01-30 03:39 | XR ---
EXAM: XR Left Tibia and Fibula, 2 Views CLINICAL HISTORY: ITS.REASON XR Reason: r/o osteo/air TECHNIQUE: Frontal and lateral views of the left tibia and fibula. COMPARISON: No relevant prior studies available. FINDINGS: Bones/joints: Unremarkable. No acute fracture. No dislocation. Soft tissues: Unremarkable. No radiopaque foreign body. IMPRESSION: No acute abnormality.
[2023-01-30] MEDS ORDERED: HYDROmorphone 1 MG/ML 1 ML SYRINGE IVP STA (03:55)
[2023-01-30] MEDS ORDERED: ONDANSETRON 4 MG/2 ML VIAL IVP PRN (05:24)
[2023-01-30] MEDS ORDERED: ACETAMINOPHEN TAB 325 MG TAB PO PRN (05:24)
[2023-01-30] MEDS ORDERED: HYDROmorphone 0.5 MG/0.5 ML SYRINGE IVP PRN (05:24)
[2023-01-30] MEDS ORDERED: NALOXONE 0.4 MG/ML 1 ML VIAL IV PRN (05:24)
[2023-01-30] MEDS ORDERED: AMPICILLIN-SULBACTAM 3 GM in SODIUM CHLORIDE 0.9% 100 ML IVPB STA (05:30)
[2023-01-30] MEDS ORDERED: AMPICILLIN-SULBACTAM 3 GM in SODIUM CHLORIDE 0.9% 50 ML IVPB SCH (06:00)
[2023-01-30] MEDS: SODIUM CHLORIDE 0.9% 1,000 ML IV SCH ×2 (06:01→17:37)
[2023-01-30 06:43] LABS: Appearance,Urine Clear (Clear); Bilirubin,Urine Negative (Negative); Blood,Urine Negative (Negative); Color,Urine Yellow; Glucose,Urine (UA) Negative (Negative); Ketones,Urine Negative (Negative); Leukocyte Esterase,Urine Negative (Negative); Nitrite,Urine Negative (Negative); Protein,Urine Negative (Negative); Urobilinogen,Urine <2.0 mg/dL (<2.0)
[2023-01-30] MEDS: HYDROmorphone 1 MG/ML 1 ML SYRINGE IVP PRN ×2 (10:46→19:46)
[2023-01-30] MEDS ORDERED: TEMAZEPAM 15 MG CAP PO PRN (14:34)
[2023-01-30] MEDS ORDERED: LORazepam 0.5 MG TAB PO PRN (14:34)
[2023-01-30] MEDS ORDERED: LACTULOSE 20 GM/30 ML CUP PO PRN (14:34)
--- NOTE | 2023-01-30 15:19 | P.GSCN ---
History of Present Illness History of present illness: 27-year-old white male patient came to the emergency room last night with history of worsening pain and swelling right foot second toe patient has history of trauma in the past patient is on antibiotic no history of diabetes the right foot second toe has a gangrene changes with some drainage on the dorsum aspect patient has a x-ray which shows soft tissue swelling with the gas forming at medial aspect of the distal and interphalangeal joint Medical history patient has a history of Willian ataxia On examination patient is afebrile neck is supple no bruit appreciated Chest is clear good and both lungs Abdomen soft nontender Femorals are 2+ bilateral right foot PTT P palpable right foot second toe has a gangrene changes with marked redness and tenderness Plan is patient IV antibiotic patient will be scheduled right foot second toe ray amputation we will arrange follow with you Past Medical History Additional Past Medical History / Comment(s): ataxia, wheelchair bound, History of Any Multi-Drug Resistant Organisms: None Reported Past Surgical History: No Surgical Hx Reported Past Anesthesia/Blood Transfusion Reactions: No Reported Reaction Past Psychological History: ADD/ADHD, Bipolar Smoking Status: Current every day smoker Past Alcohol Use History: Occasional Past Drug Use History: Marijuana Medications and Allergies Home Medications Medication Instructions Recorded Confirmed Type Aspirin EC [Ecotrin Low Dose] 243 mg PO TID 12/21/22 01/30/23 History Acetaminophen Tab [Tylenol] 650 mg PO Q6HR PRN tab 12/23/22 01/30/23 Rx hydroCHLOROthiazide 12.5 mg PO DAILY 01/30/23 01/30/23 History Allergies Allergy/AdvReac Type Severity Reaction Status Date / Time No Known Allergies Allergy Verified 01/30/23 12:46 Surgical - Exam Vital Signs Temp Pulse Resp BP Pulse Ox 97.3 F L 94 20 113/81 98 01/29/23 23:00 01/29/23 23:00 01/29/23 23:00 01/29/23 23:00 01/29/23 23:00 Results - Labs 01/30/23 00:03 01/30/23 00:03 Abnormal Lab Results - Last 24 Hours (Table) 01/30/23 Range/Units 00:03 Sodium 135 L (137-145) mmol/L Carbon Dioxide 20 L (22-30) mmol/L Glucose 105 H (74-99) mg/dL AST 64 H (17-59) U/L ALT 65 H (4-49) U/L Total Protein 8.4 H (6.3-8.2) g/dL Diabetes panel 01/30/23 Range/Units 00:03 Sodium 135 L (137-145) mmol/L Potassium 4.4 (3.5-5.1) mmol/L Chloride 101 (98-107) mmol/L Carbon Dioxide 20 L (22-30) mmol/L BUN 13 (9-20) mg/dL Creatinine 0.76 (0.66-1.25) mg/dL Glucose 105 H (74-99) mg/dL Calcium 9.9 (8.4-10.2) mg/dL AST 64 H (17-59) U/L ALT 65 H (4-49) U/L Alkaline Phosphatase 67 (38-126) U/L Total Protein 8.4 H (6.3-8.2) g/dL Albumin 4.7 (3.5-5.0) g/dL Calcium panel 01/30/23 Range/Units 00:03 Calcium 9.9 (8.4-10.2) mg/dL Albumin 4.7 (3.5-5.0) g/dL Pituitary panel 01/30/23 Range/Units 00:03 Sodium 135 L (137-145) mmol/L Potassium 4.4 (3.5-5.1) mmol/L Chloride 101 (98-107) mmol/L Carbon Dioxide 20 L (22-30) mmol/L BUN 13 (9-20) mg/dL Creatinine 0.76 (0.66-1.25) mg/dL Glucose 105 H (74-99) mg/dL Calcium 9.9 (8.4-10.2) mg/dL Adrenal panel 01/30/23 Range/Units 00:03 Sodium 135 L (137-145) mmol/L Potassium 4.4 (3.5-5.1) mmol/L Chloride 101 (98-107) mmol/L Carbon Dioxide 20 L (22-30) mmol/L BUN 13 (9-20) mg/dL Creatinine 0.76 (0.66-1.25) mg/dL Glucose 105 H (74-99) mg/dL Calcium 9.9 (8.4-10.2) mg/dL Total Bilirubin 0.8 (0.2-1.3) mg/dL AST 64 H (17-59) U/L ALT 65 H (4-49) U/L Alkaline Phosphatase 67 (38-126) U/L Total Protein 8.4 H (6.3-8.2) g/dL Albumin 4.7 (3.5-5.0) g/dL
[2023-01-30] MEDS: ENOXAPARIN 40 MG/0.4 ML SYRINGE SQ SCH (15:23)
[2023-01-30] MEDS: traMADol 50 MG TAB PO PRN ×2 (15:24→22:37)
[2023-01-30] MEDS: ASPIRIN 81 MG PO SCH ×3 (15:24→21:07)
[2023-01-30] MEDS: AMPICILLIN-SULBACTAM 3 GM in SODIUM CHLORIDE 0.9% 100 ML IVPB SCH ×2 (15:25→18:47)
[2023-01-30] MEDS: NICOTINE 21MG/24HR PATCH TRANSDERM SCH (15:32)
--- NOTE | 2023-01-30 15:46 | P.HPIM ---
History of Present Illness H&P Date: 01/30/23 Chief Complaint: Right foot second toe infection This is a 27-year-old patient who follows with Dr. Louis Rachel. Patient has long-standing Maksim ataxia. does use a wheelchair to get about. Does smoke about half a pack a day and does marijuana half a joint daily. Lives with his grandfather. Patient is here from December 22 through December 23.-Then Patient hit his foot ag ainst the site of a bunk bed. Progressively the toe was covered discolored. Some drainage. Denies any fever and chills. It is painful. He went to see a pipe coverer and was sent to the ER. PAULINA Hicks. Seen by Dr. Wagner from ID and Dr. Romero from vascular. discharged on Augmentin for 10 days. Patient did follow up with ID outpatient. Second toe was actually improving. Last 3 weeks started getting worse. Discolored and boggy some discomfort. Denied any fever and chills. Appetite fair. Review of systems: GEN.: None EYES: None HEENT: None NECK: None RESPIRATORY: None CARDIOVASCULAR: None GASTROINTESTINAL: None GENITOURINARY: None MUSCULOSKELETAL: As above LYMPHATICS: None HEMATOLOGICAL: None PSYCHIATRY: None NEUROLOGICAL: Bit of slurred speech Past medical history to include: Maksim ataxia. Bipolar. Uses a wheelchair Social history: Lives with grandfather. Smokes half a packet of cigarettes a day. Does marijuana half a joint a day. Physical examination: VITAL SIGNS: 98.9, 100, 18, 111/71, 95% room air GENERAL: BMI 28.6, reclining in bed awake comfortable EYES: Pupils equal. Conjunctiva normal. HEENT: External appearance of nose and ears normal, oral cavity grossly normal. NECK: JVD not raised; masses not palpable. HEART: First and second heart sounds are normal; no edema. LUNGS: Respiratory rate normal; clear to auscultation. ABDOMEN: Soft, nontender, liver spleen not palpable, no masses palpable. PSYCH: Alert and oriented x3; mood and affect normal. MUSCULOSKELETAL:No Clubbing/cyanosis;muscles-grossly intact. Right foot second toe. Gangrenous changes. Boggy. NEUROLOGICAL: Slightly slow speech. Some weakness of lower extremity.]. LYMPHATICS: No lymph nodes palpable in the axilla and neck INVESTIGATIONS, reviewed in the clinical context: January 30: White count 7.2 hemoglobin 15.9 platelets 169 sodium 135 potassium 4.4 BUN 13 creatinine 0.76 AST 64 ALT 65 EKG tracing personally reviewed by me-normal sinus rhythm. Nonspecific ST-T wave changes. Right foot x-ray film personally reviewed by meet: Some soft tissue swelling. Over the second digit. With gas and the medial aspect of the distal IP joint. No obvious bony destruction reported. Assessment and plan: -Acute wet gangrene changes in the right foot second toe. acute dactylitis right foot second toe. Secondary to trauma about 3 months ago. Was treated a month ago with IV Unasyn and the course of Augmentin. It had improved. Osteomyelitis ruled out. IV Unasyn. Patient is known to Dr. Romero, consulted for possible amputation. ID consulted -Chronic medical debility from underlying Maksim ataxia Chronically uses a wheelchair. -Chronic nicotine dependence, cigarette smoker Nicotine patch -Recreational use of marijuana -Maksim ataxia -Full code Past Medical History Additional Past Medical History / Comment(s): ataxia, wheelchair bound, History of Any Multi-Drug Resistant Organisms: None Reported Past Surgical History: No Surgical Hx Reported Past Anesthesia/Blood Transfusion Reactions: No Reported Reaction Past Psychological History: ADD/ADHD, Bipolar Smoking Status: Current every day smoker Past Alcohol Use History: Occasional Past Drug Use History: Marijuana Medications and Allergies Home Medications Medication Instructions Recorded Confirmed Type Aspirin EC [Ecotrin Low Dose] 243 mg PO TID 12/21/22 01/30/23 History Acetaminophen Tab [Tylenol] 650 mg PO Q6HR PRN tab 12/23/22 01/30/23 Rx hydroCHLOROthiazide 12.5 mg PO DAILY 01/30/23 01/30/23 History Allergies Allergy/AdvReac Type Severity Reaction Status Date / Time No Known Allergies Allergy Verified 01/30/23 12:46 Physical Exam Vitals: Vital Signs Temp Pulse Pulse Resp BP BP Pulse Ox 01/30/23 09:00 98.9 F 100 18 111/71 95 01/30/23 06:03 97 19 108/62 96 01/30/23 05:02 89 18 115/66 96 01/30/23 04:27 98 18 109/62 97 01/30/23 03:17 88 18 106/65 96 01/30/23 02:00 94 20 122/71 97 01/30/23 01:32 89 18 113/71 97 01/29/23 23:00 97.3 F L 94 20 113/81 98 Intake and Output 01/29/23 01/30/23 01/30/23 22:59 06:59 14:59 Other: Weight 117.934 kg Results CBC & Chem 7: 01/30/23 00:03 01/30/23 00:03 Labs: Abnormal Lab Results - Last 24 Hours (Table) 01/30/23 Range/Units 00:03 Sodium 135 L (137-145) mmol/L Carbon Dioxide 20 L (22-30) mmol/L Glucose 105 H (74-99) mg/dL AST 64 H (17-59) U/L ALT 65 H (4-49) U/L Total Protein 8.4 H (6.3-8.2) g/dL
--- NOTE | 2023-01-30 23:59 | P.CONS ---
History of Present Illness - Reason for Consult Consult date: 01/30/23 Nonhealing right second toe infection Requesting physician: Singh Schroeder - Chief Complaint Right second toe swelling and discoloration x few days - History of Present Illness Patient is a 27-year-old male with a past medical history significant for ataxia ADHD bipolar disorder who was recently admitted at this facility with a right second toe wound and cellulitis culture positive for MSSA and the patient has been treated with a course of Augmentin followed by Keflex and the patient was doing well however the patient now presenting to the hospital with a chief complaint of right second toe becoming more discolored and started to drain patient denies any history of any trauma noticing the discoloration getting worse over the last few days and did have some drainage but denies any foul-smelling denies any fever or any chills no nausea vomiting no abdominal pain vomiting diarrhea patient on presentation to the hospital was afebrile and no fever has been culture subsequently patient has normal white count creatinine was normal there was observed mildly elevated urine was negative local cultures obtained which are currently pending patient did have x-ray of the foot soft tissue swelling overlying the metatarsal soft tissue swelling along with a gas in the medial aspect of the distal interphalangeal joint patient has been admitted to the hospital he was started on Unasyn infectious disease was consulted for further management of antibiotic therapy Review of Systems Positive point and negatives has been mentioned in the HPI, complete review of systems was performed and all other systems are negative Past Medical History Additional Past Medical History / Comment(s): ataxia, wheelchair bound, History of Any Multi-Drug Resistant Organisms: None Reported Past Surgical History: No Surgical Hx Reported Past Anesthesia/Blood Transfusion Reactions: No Reported Reaction Past Psychological History: ADD/ADHD, Bipolar Smoking Status: Current every day smoker Past Alcohol Use History: Occasional Past Drug Use History: Marijuana Medications and Allergies Home Medications Medication Instructions Recorded Confirmed Type Aspirin EC [Ecotrin Low Dose] 243 mg PO TID 12/21/22 01/30/23 History Acetaminophen Tab [Tylenol] 650 mg PO Q6HR PRN tab 12/23/22 01/30/23 Rx Amoxic-Pot Clav 875-125Mg 1 tab PO BID 14 Days #28 tab 02/04/23 Rx [Augmentin 875-125] Nicotine 21Mg/24Hr Patch [Habitrol] 1 patch TRANSDERM DAILY #14 patch 02/04/23 Rx Allergies Allergy/AdvReac Type Severity Reaction Status Date / Time No Known Allergies Allergy Verified 01/30/23 12:46 Physical Exam Vitals: Vital Signs Temp Pulse Pulse Resp BP BP Pulse Ox 01/30/23 09:00 98.9 F 100 18 111/71 95 01/30/23 06:03 97 19 108/62 96 01/30/23 05:02 89 18 115/66 96 01/30/23 04:27 98 18 109/62 97 01/30/23 03:17 88 18 106/65 96 01/30/23 02:00 94 20 122/71 97 01/30/23 01:32 89 18 113/71 97 01/29/23 23:00 97.3 F L 94 20 113/81 98 Intake and Output 01/29/23 01/30/23 01/30/23 22:59 06:59 14:59 Other: Weight 117.934 kg GENERAL DESCRIPTION: Middle-aged male lying in bed, no distress. No tachypnea or accessory muscle of respiration use. HEENT: Shows Pallor , no scleral icterus. Oral mucous membrane is dry. No pharyngeal erythema or thrush NECK: Trachea central, no thyromegaly. LUNGS: Unlabored breathing. Clear to auscultation anteriorly. No wheeze or crackle. HEART: S1, S2, regular rate and rhythm. No loud murmur ABDOMEN: Soft, no tenderness , guarding or rigidity, no organomegaly EXTREMITIES: Right second toe with discoloration swelling redness minimal foul-smelling SKIN: No rash, no masses palpable. NEUROLOGICAL: The patient is awake, alert, oriented x3, mood and affect normal. Results CBC & Chem 7: 02/02/23 06:40 02/02/23 06:40 Labs: Abnormal Lab Results - Last 24 Hours (Table) 01/30/23 Range/Units 00:03 Sodium 135 L (137-145) mmol/L Carbon Dioxide 20 L (22-30) mmol/L Glucose 105 H (74-99) mg/dL AST 64 H (17-59) U/L ALT 65 H (4-49) U/L Total Protein 8.4 H (6.3-8.2) g/dL Assessment and Plan (1) Cellulitis of toe of right foot Status: Acute Code(s): L03.031 - CELLULITIS OF RIGHT TOE SNOMED Code(s): 18125938 (2) Nonhealing skin ulcer Status: Acute Code(s): L98.499 - NON-PRESSURE CHRONIC ULCER OF SKIN OF SITES W UNSP SEVERITY SNOMED Code(s): 25876994 Plan: 1patient presented to the hospital right second toe discoloration in this patient with necrotic changes on the dorsal lateral right foot With associated cellulitis patient x-ray did shows soft tissue swelling and gas likely he will need to cover for the polymicrobial shanika usually associated with this type of infection with the last culture positive for MSSA 2-await vascular surgery evaluation for possible debridement and deep culture 3-Unasyn 3 g every 6 hours to provide adequate antibiotic coverage We will follow on clinical condition and cultures to further adjust medication if needed Thank you for this consultation we will follow the patient along with you Dictation was produced using [employer] dictation software. please excuse any grammatical, word or spelling errors. Time with Patient: Greater than 30
[2023-01-31] MEDS: AMPICILLIN-SULBACTAM 3 GM in SODIUM CHLORIDE 0.9% 100 ML IVPB SCH ×4 (00:03→20:37)
[2023-01-31] MEDS: SODIUM CHLORIDE 0.9% 1,000 ML IV SCH ×3 (01:35→23:47)
[2023-01-31] MEDS: traMADol 50 MG TAB PO PRN (05:41)
[2023-01-31] MEDS: ASPIRIN 81 MG PO SCH ×3 (08:07→22:26)
[2023-01-31] MEDS: ENOXAPARIN 40 MG/0.4 ML SYRINGE SQ SCH (08:07)
[2023-01-31] MEDS: NICOTINE 21MG/24HR PATCH TRANSDERM SCH (08:08)
[2023-01-31] MEDS: HYDROmorphone 1 MG/ML 1 ML SYRINGE IVP PRN (10:00)
[2023-01-31] MEDS ORDERED: LACTATED RINGERS 1,000 ML IV ONE (15:58)
--- NOTE | 2023-01-31 16:18 | P.PN ---
Progress Note - Text Progress Note Date: 01/31/23 Chief Complaint: Right foot second toe infection This is a 27-year-old patient who follows with Dr. Louis Rachel. Patient has long-standing Maksim ataxia. does use a wheelchair to get about. Does smoke about half a pack a day and does marijuana half a joint daily. Lives with his grandfather. Patient is here from December 22 through December 23.-Then Patient hit his foot against the site of a bunk bed. Progressively the toe was covered discolored. Some drainage. Denies any fever and chills. It is painful. He went to see a campus security director and was sent to the ER. IV Unasyn. Seen by Dr. Wagner from ID and Dr. Romero from vascular. discharged on Augmentin for 10 days. Patient did follow up with ID outpatient. Second toe was actually improving. Last 3 weeks started getting worse. Discolored and boggy some discomfort. Denied any fever and chills. Appetite fair. January 31: Seen by me this morning. Nothing by mouth. Pending re- amputation. No new symptoms. On IV Unasyn. Active Medications Acetaminophen (Acetaminophen Tab 325 Mg Tab) 650 mg PO Q6HR PRN PRN Reason: Mild Pain or Fever > 100.5 Last Admin: 01/31/23 02:49 Dose: 650 mg Aspirin (Aspirin 81 Mg) 243 mg PO TID [facility] Last Admin: 01/31/23 08:07 Dose: Not Given Enoxaparin Sodium (Enoxaparin 40 Mg/0.4 Ml Syringe) 40 mg SQ DAILY [facility] Last Admin: 01/31/23 08:07 Dose: Not Given Hydromorphone HCl (Hydromorphone 1 Mg/Ml 1 Ml Syringe) 1 mg IVP Q3HR PRN PRN Reason: Severe Pain (Scale 7 to 10) Last Admin: 01/31/23 10:00 Dose: 1 mg Sodium Chloride (Saline 0.9%) 1,000 mls @ 100 mls/hr IV .Q10H [facility] Last Admin: 01/31/23 13:09 Dose: 100 mls/hr Ampicillin Sodium/Sulbactam (Sodium 3 gm/ Sodium Chloride) 100 mls @ 200 mls/hr IVPB Q6H [facility] Last Admin: 01/31/23 13:09 Dose: 200 mls/hr Lactulose (Lactulose 20 Gm/30 Ml Cup) 20 gm PO DAILY PRN PRN Reason: Constipation Lorazepam (Lorazepam 0.5 Mg Tab) 0.5 mg PO Q6HR PRN PRN Reason: Anxiety Naloxone HCl (Naloxone 0.4 Mg/Ml 1 Ml Vial) 0.2 mg IV Q2M PRN PRN Reason: Opioid Reversal Nicotine (Nicotine 21mg/24hr Patch) 1 patch TRANSDERM DAILY [facility] Last Admin: 01/31/23 08:08 Dose: Not Given Ondansetron HCl (Ondansetron 4 Mg/2 Ml Vial) 4 mg IVP Q8HR PRN PRN Reason: Nausea And Vomiting Temazepam (Temazepam 15 Mg Cap) 15 mg PO HS PRN PRN Reason: Insomnia Tramadol HCl (Tramadol 50 Mg Tab) 50 mg PO Q6H PRN PRN Reason: Moderate Pain (Scale 4 to 6) Last Admin: 01/31/23 05:41 Dose: 50 mg Past medical history to include: Maksim ataxia. Bipolar. Uses a wheelchair Social history: Lives with grandfather. Smokes half a packet of cigarettes a day. Does marijuana half a joint a day. Physical examination: VITAL SIGNS: 97.5, 82, 17, 110/65, 95% room air GENERAL: BMI 28.6, reclining in bed awake comfortable EYES: Pupils equal. Conjunctiva normal. HEENT: External appearance of nose and ears normal, oral cavity grossly normal. NECK: JVD not raised; masses not palpable. HEART: First and second heart sounds are normal; no edema. LUNGS: Respiratory rate normal; clear to auscultation. ABDOMEN: Soft, nontender, liver spleen not palpable, no masses palpable. PSYCH: Alert and oriented x3; mood and affect normal. MUSCULOSKELETAL:No Clubbing/cyanosis;muscles-grossly intact. Right foot second toe. Gangrenous changes. Boggy. NEUROLOGICAL: Slightly slow speech. Some weakness of lower extremity.]. INVESTIGATIONS, reviewed in the clinical context: January 30: White count 7.2 hemoglobin 15.9 platelets 169 sodium 135 potassium 4.4 BUN 13 creatinine 0.76 AST 64 ALT 65 EKG tracing personally reviewed by me-normal sinus rhythm. Nonspecific ST-T wave changes. Right foot x-ray film personally reviewed by meet: Some soft tissue swelling. Over the second digit. With gas and the medial aspect of the distal IP joint. No obvious bony destruction reported. Assessment and plan: -Acute wet gangrene changes in the right foot second toe. acute dactylitis right foot second toe. Secondary to trauma about 3 months ago. Was treated a month ago with IV Unasyn and the course of Augmentin. It had improved.: Currently not improving Osteomyelitis ruled out. IV Unasyn. Patient is known to Dr. Romero,-pending ray-amputation this afternoon ID consulted -Chronic medical debility from underlying Maksim ataxia Chronically uses a wheelchair. -Chronic nicotine dependence, cigarette smoker Nicotine patch -Recreational use of marijuana -Maksim ataxia -Full code Past Medical History Additional Past Medical History / Comment(s): ataxia, wheelchair bound, History of Any Multi-Drug Resistant Organisms: None Reported Past Surgical History: No Surgical Hx Reported Past Anesthesia/Blood Transfusion Reactions: No Reported Reaction Past Psychological History: ADD/ADHD, Bipolar Smoking Status: Current every day smoker Past Alcohol Use History: Occasional Past Drug Use History: Marijuana Medications and Allergies Home Medications Medication Instructions Recorded Confirmed Type Aspirin EC [Ecotrin Low Dose] 243 mg PO TID 12/21/22 01/30/23 History Acetaminophen Tab [Tylenol] 650 mg PO Q6HR PRN tab 12/23/22 01/30/23 Rx hydroCHLOROthiazide 12.5 mg PO DAILY 01/30/23 01/30/23 History Allergies Allergy/AdvReac Type Severity Reaction Status Date / Time No Known Allergies Allergy Verified 01/30/23 12:46
[2023-01-31] MEDS ORDERED: DEXAMETHASONE SOD PHOSPHATE 4 MG/ML 1 ML VIAL IVP ONE (16:37)
[2023-01-31] MEDS ORDERED: ONDANSETRON 4 MG/2 ML VIAL IVP ONE (16:37)
[2023-01-31] MEDS ORDERED: PROPOFOL 10 MG/ML 20 ML VIAL IV ONE (17:10)
[2023-01-31] MEDS ORDERED: MIDAZOLAM 2 MG/2 ML VIAL ONE (17:10)
[2023-01-31] MEDS ORDERED: KETAMINE 10 MG/ML 20 ML VIAL ONE (17:10)
[2023-01-31] MEDS ORDERED: fentaNYL (PF) 50 MCG/ML 2 ML AMP ONE (17:10)
[2023-01-31] MEDS ORDERED: LIDOCAINE 1% INJ 10MG/ML (20 ML MDV) SQ ONE (17:20)
--- NOTE | 2023-01-31 17:56 | P.PN ---
Subjective Progress Note Date: 01/31/23 Principal diagnosis: Right second toe infection Patient is a 27-year-old male with a past medical history significant for ataxia ADHD bipolar disorder who was recently admitted at this facility with a right second toe wound and cellulitis culture positive for MSSA and the patient has been treated with a course of Augmentin followed by Keflex, did have initial improvement now presented to hospital worsening discoloration swelling redness. On today's evaluation that is 01/31/2023, the patient remains to be afebrile, the patient is breathing comfortably , the patient denies having any chest pain or cough, the patient denies nausea and vomiting no abdominal pain and no diarrhea, the patient denies any worsening pain to the right second toe Blood and local cultures are currently pending Objective - Vital Signs Vital signs: Vital Signs Temp 97.5 F L 01/31/23 07:27 Pulse 82 01/31/23 07:27 Resp 17 01/31/23 07:27 BP 110/65 01/31/23 07:27 Pulse Ox 95 01/31/23 07:27 FiO2 Intake & Output 01/30/23 01/31/23 01/31/23 18:59 06:59 18:59 Output Total 400 Balance -400 Weight 117.934 kg Output: Urine 400 Other: # Voids 2 - Exam GENERAL DESCRIPTION: Middle-age male lying in bed in no distress RESPIRATORY SYSTEM: Unlabored breathing , decreased breath sounds at bases HEART: S1 S2 regular rate and rhythm , ABDOMEN: Soft , no tenderness EXTREMITIES: Right second toe is currently dressed - Labs CBC & Chem 7: 01/30/23 00:03 01/30/23 00:03 Labs: Microbiology - Last 24 Hours (Table) 01/30/23 00:25 Blood Culture - Preliminary Blood 01/30/23 00:03 Blood Culture - Preliminary Blood 01/30/23 00:08 Gram Stain - Final Toe - Right Second Wound Culture - Final Assessment and Plan (1) Cellulitis of toe of right foot Current Visit: No Status: Acute Code(s): L03.031 - CELLULITIS OF RIGHT TOE SNOMED Code(s): 49935450 (2) Ulcer of toe of right foot Current Visit: No Status: Acute Code(s): L97.519 - NON-PRS CHRONIC ULCER OTH PRT RIGHT FOOT W UNSP SEVERITY SNOMED Code(s): 14291317712607743 Plan: 1patient presented to the hospital right second toe discoloration in this patient with necrotic changes on the dorsal lateral right foot With associated cellulitis patient x-ray did shows soft tissue swelling and gas likely he will need to cover for the polymicrobial shanika usually associated with this type of infection with the last culture positive for MSSA 2Patient has been evaluated by vascular surgery and pain for amputation of the second toe 3-patient to continue with Unasyn 3 g every 6 hours and monitor clinical course closely Dictation was produced using [employer] dictation software. please excuse any grammatical, word or spelling errors. Time with Patient: Less than 30
--- NOTE | 2023-01-31 18:09 | P.PN ---
Progress Note - Text Preop diagnoses is wet gangrene of the right foot second toe with gas-forming organism Posterior the same Procedure ray amputation of the right foot second toe patient brought to the operating room right foot was prepped and draped applied sterile manner 1% lidocaine were infiltrated with IV sedation the right foot second toe incision was made on the dorsal suspect of the foot debridement through skin fat and fascia and tendon were divided then circumferentially went around the second toe he presents through skin fat and fascia until we reached the plantar aspect the tendon were divided on the plantar aspect. Incision was deepened to the skin fat and fascia there was a digital vessels which was suture ligated with the 3-0 Prolene. We reached the metatarsophalangeal joint this patient had a gas- forming organism by x-ray metatarsophalangeal joint on the devitalized tissue was excised the ligament at the metatarsophalangeal joint were divided and specimen was removed which was sent for deep culture prior with an anaerobic wound was copiously he was hardened Olivo I didn't saline hemostasis were well controlled plantar aspect aspect of the skin was edges were are not very healthy and we closed the subcu tissue and fascia with 0-0 Vicryl with interrupted suture skin was left open on the plantar aspect dorsum aspect we placed a 3-0 nylon dressing applied Aquacel was applied to the wound dressing was applied sent to the recovery room in satisfactory condition
[2023-02-01] MEDS: AMPICILLIN-SULBACTAM 3 GM in SODIUM CHLORIDE 0.9% 100 ML IVPB SCH ×4 (01:04→18:06)
[2023-02-01] MEDS: HYDROmorphone 1 MG/ML 1 ML SYRINGE IVP PRN (01:04)
[2023-02-01] MEDS: traMADol 50 MG TAB PO PRN ×2 (06:58→15:48)
[2023-02-01] MEDS: SODIUM CHLORIDE 0.9% 1,000 ML IV SCH ×2 (08:17→15:48)
[2023-02-01] MEDS: NICOTINE 21MG/24HR PATCH TRANSDERM SCH (09:22)
[2023-02-01] MEDS: ENOXAPARIN 40 MG/0.4 ML SYRINGE SQ SCH (09:23)
[2023-02-01] MEDS: ASPIRIN 81 MG PO SCH ×3 (09:23→21:59)
--- NOTE | 2023-02-01 15:54 | P.PN ---
Progress Note - Text Progress Note Date: 02/01/23 Chief Complaint: Right foot second toe infection This is a 27-year-old patient who follows with Dr. Louis Rachel. Patient has long-standing Maksim ataxia. does use a wheelchair to get about. Does smoke about half a pack a day and does marijuana half a joint daily. Lives with his grandfather. Patient is here from December 22 through December 23.-Then Patient hit his foot against the site of a bunk bed. Progressively the toe was covered discolored. Some drainage. Denies any fever and chills. It is painful. He went to see a underwater trapper and was sent to the ER. IV Unasyn. Seen by Dr. Wagner from ID and Dr. Romero from vascular. discharged on Augmentin for 10 days. Patient did follow up with ID outpatient. Second toe was actually improving. Last 3 weeks started getting worse. Discolored and boggy some discomfort. Denied any fever and chills. Appetite fair. January 31: Seen by me this morning. Nothing by mouth. Pending re- amputation. No new symptoms. On IV Unasyn. February 01: Status post amputation by Dr. Romero yesterday. This morning sitting up in bed. Comfortable. No pain. Did tolerate his meals. IV Unasyn. Local wound care per Dr. Romero. Patient counseled about smoking. Active Medications Acetaminophen (Acetaminophen Tab 325 Mg Tab) 650 mg PO Q6HR PRN PRN Reason: Mild Pain or Fever > 100.5 Last Admin: 01/31/23 02:49 Dose: 650 mg Aspirin (Aspirin 81 Mg) 243 mg PO TID [facility] Last Admin: 02/01/23 15:48 Dose: 243 mg Enoxaparin Sodium (Enoxaparin 40 Mg/0.4 Ml Syringe) 40 mg SQ DAILY [facility] Last Admin: 02/01/23 09:23 Dose: 40 mg Hydromorphone HCl (Hydromorphone 1 Mg/Ml 1 Ml Syringe) 1 mg IVP Q3HR PRN PRN Reason: Severe Pain (Scale 7 to 10) Last Admin: 02/01/23 01:04 Dose: 1 mg Sodium Chloride (Saline 0.9%) 1,000 mls @ 100 mls/hr IV .Q10H [facility] Last Admin: 02/01/23 15:48 Dose: 100 mls/hr Ampicillin Sodium/Sulbactam (Sodium 3 gm/ Sodium Chloride) 100 mls @ 200 mls/hr IVPB Q6H [facility] Last Admin: 02/01/23 12:47 Dose: 200 mls/hr Lactulose (Lactulose 20 Gm/30 Ml Cup) 20 gm PO DAILY PRN PRN Reason: Constipation Lorazepam (Lorazepam 0.5 Mg Tab) 0.5 mg PO Q6HR PRN PRN Reason: Anxiety Naloxone HCl (Naloxone 0.4 Mg/Ml 1 Ml Vial) 0.2 mg IV Q2M PRN PRN Reason: Opioid Reversal Nicotine (Nicotine 21mg/24hr Patch) 1 patch TRANSDERM DAILY [facility] Last Admin: 02/01/23 09:22 Dose: Not Given Ondansetron HCl (Ondansetron 4 Mg/2 Ml Vial) 4 mg IVP Q8HR PRN PRN Reason: Nausea And Vomiting Temazepam (Temazepam 15 Mg Cap) 15 mg PO HS PRN PRN Reason: Insomnia Tramadol HCl (Tramadol 50 Mg Tab) 50 mg PO Q6H PRN PRN Reason: Moderate Pain (Scale 4 to 6) Last Admin: 02/01/23 15:48 Dose: 50 mg Past medical history to include: Maksim ataxia. Bipolar. Uses a wheelchair Social history: Lives with grandfather. Smokes half a packet of cigarettes a day. Does marijuana half a joint a day. Physical examination: VITAL SIGNS: 98.4, 73, 18, 125 was 63, 96% room air GENERAL: Sitting up in bed, comfortable EYES: Pupils equal. Conjunctiva normal. HEENT: External appearance of nose and ears normal, oral cavity grossly normal. NECK: JVD not raised; masses not palpable. HEART: First and second heart sounds are normal; no edema. LUNGS: Respiratory rate normal; clear to auscultation. ABDOMEN: Soft, nontender, liver spleen not palpable, no masses palpable. PSYCH: Alert and oriented x3; mood and affect normal. MUSCULOSKELETAL:No Clubbing/cyanosis;muscles-grossly intact. Right foot in a dressing NEUROLOGICAL: Slightly slow speech. Some weakness of lower extremity.]. INVESTIGATIONS, reviewed in the clinical context: Wound culture: Polymicrobial January 30: White count 7.2 hemoglobin 15.9 platelets 169 sodium 135 potassium 4.4 BUN 13 creatinine 0.76 AST 64 ALT 65 EKG tracing personally reviewed by me-normal sinus rhythm. Nonspecific ST-T wave changes. Right foot x-ray film personally reviewed by meet: Some soft tissue swelling. Over the second digit. With gas and the medial aspect of the distal IP joint. No obvious bony destruction reported. Assessment and plan: -Acute wet gangrene changes in the right foot second toe. acute dactylitis right foot second toe. Secondary to trauma about 3 months ago. Was treated a month ago with IV Unasyn and the course of Augmentin. It had improved.: Currently not improving Osteomyelitis ruled out. Wound culture: Polymicrobial IV Unasyn. January 31: Amputation carried out per Dr. Romero. ID following -Chronic medical debility from underlying Maksim ataxia Chronically uses a wheelchair. -Chronic nicotine dependence, cigarette smoker Nicotine patch -Recreational use of marijuana -Maksim ataxia -Full code Past Medical History Additional Past Medical History / Comment(s): ataxia, wheelchair bound, History of Any Multi-Drug Resistant Organisms: None Reported Past Surgical History: No Surgical Hx Reported Past Anesthesia/Blood Transfusion Reactions: No Reported Reaction Past Psychological History: ADD/ADHD, Bipolar Smoking Status: Current every day smoker Past Alcohol Use History: Occasional Past Drug Use History: Marijuana Medications and Allergies Home Medications Medication Instructions Recorded Confirmed Type Aspirin EC [Ecotrin Low Dose] 243 mg PO TID 12/21/22 01/30/23 History Acetaminophen Tab [Tylenol] 650 mg PO Q6HR PRN tab 12/23/22 01/30/23 Rx hydroCHLOROthiazide 12.5 mg PO DAILY 01/30/23 01/30/23 History Allergies Allergy/AdvReac Type Severity Reaction Status Date / Time No Known Allergies Allergy Verified 01/30/23 12:46
--- NOTE | 2023-02-01 16:53 | P.PN ---
Subjective Progress Note Date: 02/01/23 Principal diagnosis: Right second toe infection Patient is a 27-year-old male with a past medical history significant for ataxia ADHD bipolar disorder who was recently admitted at this facility with a right second toe wound and cellulitis culture positive for MSSA and the patient has been treated with a course of Augmentin followed by Keflex, did have initial improvement now presented to hospital worsening discoloration swelling redness. Patient is status post right second toe amputation on 01/31/2023 On today's evaluation that is 02/01/2023, the patient denies any fever or any chills, the patient is breathing comfortably , the patient denies chest pain or cough, the patient denies nausea and vomiting no abdominal pain and no diarrhea has been reported, the patient denies any worsening pain to the right second toe amputation site , No blood draw today, cultures are currently pending Objective - Vital Signs Vital signs: Vital Signs Temp 98.4 F 02/01/23 13:23 Pulse 73 02/01/23 13:23 Resp 18 02/01/23 13:23 BP 125/63 02/01/23 13:23 Pulse Ox 96 02/01/23 13:23 FiO2 Intake & Output 01/31/23 02/01/23 02/01/23 18:59 06:59 18:59 Intake Total 500 1820 Output Total 450 2510 Balance 50 -690 Intake: IV 500 Intake, IV Titration 1100 Amount Ampicillin-Sulbactam 3 gm 100 In Sodium Chloride 0.9% 100 ml @ 200 mls/hr IVPB Q6H [facility] Rx#:[id number] Sodium Chloride 0.9% 1, 1000 000 ml @ 100 mls/hr IV . Q10H [facility] Rx#:[id number] Oral 720 Output: Urine 450 2510 Other: # Bowel Movements 0 - Exam GENERAL DESCRIPTION: Middle-age male lying in bed in no distress RESPIRATORY SYSTEM: Unlabored breathing , decreased breath sounds at bases HEART: S1 S2 regular rate and rhythm , ABDOMEN: Soft , no tenderness EXTREMITIES: Right foot is currently dressed, and no drainage on the dressing - Labs CBC & Chem 7: 01/30/23 00:03 01/30/23 00:03 Labs: Microbiology - Last 24 Hours (Table) 01/30/23 00:25 Blood Culture - Preliminary Blood 01/30/23 00:03 Blood Culture - Preliminary Blood Assessment and Plan (1) Cellulitis of toe of right foot Current Visit: No Status: Acute Code(s): L03.031 - CELLULITIS OF RIGHT TOE SNOMED Code(s): 17821187 (2) Ulcer of toe of right foot Current Visit: No Status: Acute Code(s): L97.519 - NON-PRS CHRONIC ULCER OTH PRT RIGHT FOOT W UNSP SEVERITY SNOMED Code(s): 67600076716273370 Plan: 1patient presented to the hospital right second toe discoloration in this patient with necrotic changes on the dorsal lateral right foot With associated cellulitis patient x-ray did shows soft tissue swelling and gas likely he will need to cover for the polymicrobial shanika usually associated with this type of infection with the last culture positive for MSSA 2Patient has been evaluated by vascular surgery and patient is status post amputation of the second toe 3-patient to continue with Unasyn 3 g every 6 hours while waiting for the cultures to finalize Dictation was produced using [employer] dictation software. please excuse any grammatical, word or spelling errors. Time with Patient: Less than 30
[2023-02-02] MEDS: AMPICILLIN-SULBACTAM 3 GM in SODIUM CHLORIDE 0.9% 100 ML IVPB SCH ×4 (00:43→17:55)
[2023-02-02] MEDS: traMADol 50 MG TAB PO PRN (04:18)
[2023-02-02] MEDS: SODIUM CHLORIDE 0.9% 1,000 ML IV SCH ×3 (06:13→23:39)
[2023-02-02 06:52] LABS: Basophils % (A) 0 %; Eosinophils # (A) 0.1 k/uL (0-0.7); Eosinophils % (A) 2 %; HCT 41.5 % (39.0-53.0); Lymphocytes # (A) 1.8 k/uL (1.0-4.8); Lymphocytes % (A) 27 %; MCH 32.2 pg (25.0-35.0); MCHC 33.7 g/dL (31.0-37.0); MCV 95.5 fL (80.0-100.0); Mean Platelet Volume 8.6; Monocytes # (A) 0.3 k/uL (0-1.0); Monocytes % (A) 4 %; Neutrophils # (A) 4.3 k/uL (1.3-7.7); Neutrophils % (A) 66 %; Platelet Count 170 k/uL (150-450); RBC 4.35 m/uL (4.30-5.90); RDW 13.6 % (11.5-15.5); WBC 6.6 k/uL (3.8-10.6)
[2023-02-02 07:04] LABS: ALT 70 U/L (4-49); AST 58 U/L (17-59); African American GFR (CKD) >90 (>60 ml/min/1.73 sqM); Albumin/Globulin Ratio 1.4; Alkaline Phosphatase 53 U/L (38-126); Anion Gap 8 mmol/L; Blood Urea Nitrogen 15 mg/dL (9-20); Carbon Dioxide 26 mmol/L (22-30); Chloride 107 mmol/L (98-107); Globulin 2.9 g/dL; Glucose 100 mg/dL (74-99); Non-African American GFR(CKD) >90 (>60 ml/min/1.73 sqM); Potassium 4.5 mmol/L (3.5-5.1); Sodium 141 mmol/L (137-145); Total Bilirubin 0.6 mg/dL (0.2-1.3); Total Protein 6.9 g/dL (6.3-8.2)
[2023-02-02] MEDS: NICOTINE 21MG/24HR PATCH TRANSDERM SCH (08:25)
[2023-02-02] MEDS: ENOXAPARIN 40 MG/0.4 ML SYRINGE SQ SCH (08:26)
[2023-02-02] MEDS: ASPIRIN 81 MG PO SCH ×3 (08:26→22:25)
--- NOTE | 2023-02-02 11:39 | PN ---
PROGRESS NOTE This patient came with right foot 2nd toe wet gangrene, we did ray amputation. The patient is on IV antibiotic. Gram stain came moderate polymorphic leukocytes and also gram-positive cocci, gram-negative bacilli, and anaerobic shows Staph aureus. The patient is on IV antibiotic under care of Infectious Disease. Today we have changed the dressing. We used Aquacel Silver, wound is granulating. No discharge or redness noted. We will continue with local wound care. We change the dressing every other day, we are using Aquacel Silver. MMODL / IJN: [id number] /
--- NOTE | 2023-02-02 15:35 | P.PN ---
Progress Note - Text Progress Note Date: 02/02/23 Chief Complaint: Right foot second toe infection This is a 27-year-old patient who follows with Dr. Louis Rahcel. Patient has long-standing Maksim ataxia. does use a wheelchair to get about. Does smoke about half a pack a day and does marijuana half a joint daily. Lives with his grandfather. Patient is here from December 22 through December 23.-Then Patient hit his foot against the site of a bunk bed. Progressively the toe was covered discolored. Some drainage. Denies any fever and chills. It is painful. He went to see a health aid and was sent to the ER. IV Unasyn. Seen by Dr. Wagner from ID and Dr. Romero from vascular. discharged on Augmentin for 10 days. Patient did follow up with ID outpatient. Second toe was actually improving. Last 3 weeks started getting worse. Discolored and boggy some discomfort. Denied any fever and chills. Appetite fair. January 31: Seen by me this morning. Nothing by mouth. Pending re- amputation. No new symptoms. On IV Unasyn. February 01: Status post amputation by Dr. Romero yesterday. This morning sitting up in bed. Comfortable. No pain. Did tolerate his meals. IV Unasyn. Local wound care per Dr. Romero. Patient counseled about smoking. February 02: Comfortable. Pain control. Dressing chamber Dr. Romero today. Cultures growing multiple shanika. IV Unasyn. Eating well. Active Medications Acetaminophen (Acetaminophen Tab 325 Mg Tab) 650 mg PO Q6HR PRN PRN Reason: Mild Pain or Fever > 100.5 Last Admin: 01/31/23 02:49 Dose: 650 mg Aspirin (Aspirin 81 Mg) 243 mg PO TID [facility] Last Admin: 02/02/23 08:26 Dose: 243 mg Enoxaparin Sodium (Enoxaparin 40 Mg/0.4 Ml Syringe) 40 mg SQ DAILY [facility] Last Admin: 02/02/23 08:26 Dose: 40 mg Hydromorphone HCl (Hydromorphone 1 Mg/Ml 1 Ml Syringe) 1 mg IVP Q3HR PRN PRN Reason: Severe Pain (Scale 7 to 10) Last Admin: 02/01/23 01:04 Dose: 1 mg Sodium Chloride (Saline 0.9%) 1,000 mls @ 10 mls/hr IV .Q24H [facility] Last Admin: 02/02/23 13:24 Dose: Not Given Ampicillin Sodium/Sulbactam (Sodium 3 gm/ Sodium Chloride) 100 mls @ 200 mls/hr IVPB Q6H [facility] Last Admin: 02/02/23 13:19 Dose: 200 mls/hr Lactulose (Lactulose 20 Gm/30 Ml Cup) 20 gm PO DAILY PRN PRN Reason: Constipation Lorazepam (Lorazepam 0.5 Mg Tab) 0.5 mg PO Q6HR PRN PRN Reason: Anxiety Naloxone HCl (Naloxone 0.4 Mg/Ml 1 Ml Vial) 0.2 mg IV Q2M PRN PRN Reason: Opioid Reversal Nicotine (Nicotine 21mg/24hr Patch) 1 patch TRANSDERM DAILY [facility] Last Admin: 02/02/23 08:25 Dose: Not Given Ondansetron HCl (Ondansetron 4 Mg/2 Ml Vial) 4 mg IVP Q8HR PRN PRN Reason: Nausea And Vomiting Temazepam (Temazepam 15 Mg Cap) 15 mg PO HS PRN PRN Reason: Insomnia Tramadol HCl (Tramadol 50 Mg Tab) 50 mg PO Q6H PRN PRN Reason: Moderate Pain (Scale 4 to 6) Last Admin: 02/02/23 04:18 Dose: 50 mg Past medical history to include: Maksim ataxia. Bipolar. Uses a wheelchair Social history: Lives with grandfather. Smokes half a packet of cigarettes a day. Does marijuana half a joint a day. Physical examination: VITAL SIGNS: 98 14, 88, 17, 100/60, 96% room air GENERAL: Laying in bed, comfortable EYES: Pupils equal. Conjunctiva normal. HEENT: External appearance of nose and ears normal, oral cavity grossly normal. NECK: JVD not raised; masses not palpable. HEART: First and second heart sounds are normal; no edema. LUNGS: Respiratory rate normal; clear to auscultation. ABDOMEN: Soft, nontender, liver spleen not palpable, no masses palpable. PSYCH: Alert and oriented x3; mood and affect normal. MUSCULOSKELETAL:No Clubbing/cyanosis;muscles-grossly intact. Right foot in a dressing NEUROLOGICAL: Slightly slow speech. Some weakness of lower extremity.]. INVESTIGATIONS, reviewed in the clinical context: February 02: White count 6.6 hemoglobin 14 platelets 1:30 potassium 4.5 creatinine 0.94 Wound culture: Polymicrobial January 30: White count 7.2 hemoglobin 15.9 platelets 169 sodium 135 potassium 4.4 BUN 13 creatinine 0.76 AST 64 ALT 65 EKG tracing personally reviewed by me-normal sinus rhythm. Nonspecific ST-T wave changes. Right foot x-ray film personally reviewed by meet: Some soft tissue swelling. Over the second digit. With gas and the medial aspect of the distal IP joint. No obvious bony destruction reported. Assessment and plan: -Acute wet gangrene changes in the right foot second toe. acute dactylitis right foot second toe. Secondary to trauma about 3 months ago. Was treated a month ago with IV Unasyn and the course of Augmentin. It had improved.: Currently not improving Osteomyelitis ruled out. Wound culture: Polymicrobial IV Unasyn. January 31: Amputation - Dr. Romero. ID following Dressing change with Aquacel per vascular -Chronic medical debility from underlying Maksim ataxia Chronically uses a wheelchair. -Chronic nicotine dependence, cigarette smoker Nicotine patch -Recreational use of marijuana -Maksim ataxia -Full code Past Medical History Additional Past Medical History / Comment(s): ataxia, wheelchair bound, History of Any Multi-Drug Resistant Organisms: None Reported Past Surgical History: No Surgical Hx Reported Past Anesthesia/Blood Transfusion Reactions: No Reported Reaction Past Psychological History: ADD/ADHD, Bipolar Smoking Status: Current every day smoker Past Alcohol Use History: Occasional Past Drug Use History: Marijuana Medications and Allergies Home Medications Medication Instructions Recorded Confirmed Type Aspirin EC [Ecotrin Low Dose] 243 mg PO TID 12/21/22 01/30/23 History Acetaminophen Tab [Tylenol] 650 mg PO Q6HR PRN tab 12/23/22 01/30/23 Rx hydroCHLOROthiazide 12.5 mg PO DAILY 01/30/23 01/30/23 History Allergies Allergy/AdvReac Type Severity Reaction Status Date / Time No Known Allergies Allergy Verified 01/30/23 12:46
[2023-02-03] MEDS: AMPICILLIN-SULBACTAM 3 GM in SODIUM CHLORIDE 0.9% 100 ML IVPB SCH ×4 (00:10→21:03)
--- NOTE | 2023-02-03 07:33 | P.PN ---
Subjective Progress Note Date: 02/02/23 Principal diagnosis: Right second toe infection Patient is a 27-year-old male with a past medical history significant for ataxia ADHD bipolar disorder who was recently admitted at this facility with a right second toe wound and cellulitis culture positive for MSSA and the patient has been treated with a course of Augmentin followed by Keflex, did have initial improvement now presented to hospital worsening discoloration swelling redness. Patient is status post right second toe amputation on 01/31/2023 On today's evaluation that is 02/02/2023, the patient denies having any fever or any chills, the patient is breathing comfortably, the patient denies having any chest pain shortness of breath or cough no nausea vomiting no abdominal pain or diarrhea, the patient pain to the right second toe amputation site is currently controlled. Patient did have white count of 6.6 creatinine 0.94 local cultures currently pending blood culture so far negative. Objective - Vital Signs Vital signs: Vital Signs Temp 98.1 F 02/02/23 12:02 Pulse 82 02/02/23 12:02 Resp 18 02/02/23 12:02 BP 95/48 02/02/23 12:02 Pulse Ox 96 02/02/23 12:02 FiO2 Intake & Output 02/01/23 02/02/23 02/02/23 18:59 06:59 18:59 Output Total 910 Balance -910 Output: Urine 910 Other: Voiding Method Urinal # Voids 4 - Exam GENERAL DESCRIPTION: Middle-age male lying in bed in no distress RESPIRATORY SYSTEM: Unlabored breathing , decreased breath sounds at bases HEART: S1 S2 regular rate and rhythm , ABDOMEN: Soft , no tenderness EXTREMITIES: Right foot is currently dressed, and no drainage on the dressing - Labs CBC & Chem 7: 02/02/23 06:40 02/02/23 06:40 Labs: Abnormal Lab Results - Last 24 Hours (Table) 02/02/23 Range/Units 06:40 Glucose 100 H (74-99) mg/dL ALT 70 H (4-49) U/L Microbiology - Last 24 Hours (Table) 01/30/23 00:25 Blood Culture - Preliminary Blood 01/30/23 00:03 Blood Culture - Preliminary Blood Assessment and Plan (1) Cellulitis of toe of right foot Current Visit: No Status: Acute Code(s): L03.031 - CELLULITIS OF RIGHT TOE SNOMED Code(s): 28715802 (2) Ulcer of toe of right foot Current Visit: No Status: Acute Code(s): L97.519 - NON-PRS CHRONIC ULCER OTH PRT RIGHT FOOT W UNSP SEVERITY SNOMED Code(s): 36008168547234976 Plan: 1patient presented to the hospital right second toe discoloration in this patient with necrotic changes on the dorsal lateral right foot With associated cellulitis patient x-ray did shows soft tissue swelling and gas likely he will need to cover for the polymicrobial shanika usually associated with this type of infection with the last culture positive for MSSA 2Patient has been evaluated by vascular surgery and patient is status post ampu tation of the second toe 3we will keep the patient on Unasyn while waiting for the culture to finalize and monitor clinical course closely Dictation was produced using [employer] dictation software. please excuse any grammatical, word or spelling errors.
[2023-02-03] MEDS: NICOTINE 21MG/24HR PATCH TRANSDERM SCH (09:24)
[2023-02-03] MEDS: ASPIRIN 81 MG PO SCH ×3 (09:25→21:59)
[2023-02-03] MEDS: ENOXAPARIN 40 MG/0.4 ML SYRINGE SQ SCH (09:25)
[2023-02-03] MEDS: SODIUM CHLORIDE 0.9% 1,000 ML IV SCH ×2 (11:41→21:03)
[2023-02-03] MEDS: traMADol 50 MG TAB PO PRN ×2 (14:00→23:47)
--- NOTE | 2023-02-03 14:50 | P.PN ---
Progress Note - Text Progress Note Date: 02/03/23 Chief Complaint: Right foot second toe infection This is a 27-year-old patient who follows with Dr. Louis Rachel. Patient has long-standing Maksim ataxia. does use a wheelchair to get about. Does smoke about half a pack a day and does marijuana half a joint daily. Lives with his grandfather. Patient is here from December 22 through December 23.-Then Patient hit his foot against the site of a bunk bed. Progressively the toe was covered discolored. Some drainage. Denies any fever and chills. It is painful. He went to see a dural mechanic and was sent to the ER. IV Unasyn. Seen by Dr. Wagner from ID and Dr. Romero from vascular. discharged on Augmentin for 10 days. Patient did follow up with ID outpatient. Second toe was actually improving. Last 3 weeks started getting worse. Discolored and boggy some discomfort. Denied any fever and chills. Appetite fair. January 31: Seen by me this morning. Nothing by mouth. Pending re- amputation. No new symptoms. On IV Unasyn. February 01: Status post amputation by Dr. Romero yesterday. This morning sitting up in bed. Comfortable. No pain. Did tolerate his meals. IV Unasyn. Local wound care per Dr. Romero. Patient counseled about smoking. February 02: Comfortable. Pain control. Dressing change Dr. Romero today. Cultures growing multiple shanika. IV Unasyn. Eating well. February 03: Pain control. Tolerated diet. Getting IV Unasyn. Hoping for discharge tomorrow. Active Medications Acetaminophen (Acetaminophen Tab 325 Mg Tab) 650 mg PO Q6HR PRN PRN Reason: Mild Pain or Fever > 100.5 Last Admin: 01/31/23 02:49 Dose: 650 mg Aspirin (Aspirin 81 Mg) 243 mg PO TID [facility] Last Admin: 02/03/23 09:25 Dose: 243 mg Enoxaparin Sodium (Enoxaparin 40 Mg/0.4 Ml Syringe) 40 mg SQ DAILY [facility] Last Admin: 02/03/23 09:25 Dose: 40 mg Hydromorphone HCl (Hydromorphone 1 Mg/Ml 1 Ml Syringe) 1 mg IVP Q3HR PRN PRN Reason: Severe Pain (Scale 7 to 10) Last Admin: 02/01/23 01:04 Dose: 1 mg Sodium Chloride (Saline 0.9%) 1,000 mls @ 10 mls/hr IV .Q24H [facility] Last Admin: 02/03/23 11:41 Dose: 10 mls/hr Ampicillin Sodium/Sulbactam (Sodium 3 gm/ Sodium Chloride) 100 mls @ 200 mls/hr IVPB Q6H [facility] Last Admin: 02/03/23 13:27 Dose: 200 mls/hr Lactulose (Lactulose 20 Gm/30 Ml Cup) 20 gm PO DAILY PRN PRN Reason: Constipation Lorazepam (Lorazepam 0.5 Mg Tab) 0.5 mg PO Q6HR PRN PRN Reason: Anxiety Naloxone HCl (Naloxone 0.4 Mg/Ml 1 Ml Vial) 0.2 mg IV Q2M PRN PRN Reason: Opioid Reversal Nicotine (Nicotine 21mg/24hr Patch) 1 patch TRANSDERM DAILY [facility] Last Admin: 02/03/23 09:24 Dose: Not Given Ondansetron HCl (Ondansetron 4 Mg/2 Ml Vial) 4 mg IVP Q8HR PRN PRN Reason: Nausea And Vomiting Temazepam (Temazepam 15 Mg Cap) 15 mg PO HS PRN PRN Reason: Insomnia Tramadol HCl (Tramadol 50 Mg Tab) 50 mg PO Q6H PRN PRN Reason: Moderate Pain (Scale 4 to 6) Last Admin: 02/03/23 14:00 Dose: 50 mg Past medical history to include: Maksim ataxia. Bipolar. Uses a wheelchair Social history: Lives with grandfather. Smokes half a packet of cigarettes a day. Does marijuana half a joint a day. Physical examination: VITAL SIGNS: 98.3, 84, 18, 108/72, 96% room air GENERAL: Eating up in bed comfortable EYES: Pupils equal. Conjunctiva normal. HEENT: External appearance of nose and ears normal, oral cavity grossly normal. NECK: JVD not raised; masses not palpable. HEART: First and second heart sounds are normal; no edema. LUNGS: Respiratory rate normal; clear to auscultation. ABDOMEN: Soft, nontender, liver spleen not palpable, no masses palpable. PSYCH: Alert and oriented x3; mood and affect normal. MUSCULOSKELETAL:No Clubbing/cyanosis;muscles-grossly intact. Right foot in a dressing NEUROLOGICAL: Slightly slow speech. Some weakness of lower extremity.]. INVESTIGATIONS, reviewed in the clinical context: February 02: White count 6.6 hemoglobin 14 platelets 1:30 potassium 4.5 creatinine 0.94 Wound culture: Polymicrobial January 30: White count 7.2 hemoglobin 15.9 platelets 169 sodium 135 potassium 4.4 BUN 13 creatinine 0.76 AST 64 ALT 65 EKG tracing personally reviewed by me-normal sinus rhythm. Nonspecific ST-T wave changes. Right foot x-ray film personally reviewed by meet: Some soft tissue swelling. Over the second digit. With gas and the medial aspect of the distal IP joint. No obvious bony destruction reported. Assessment and plan: -Acute wet gangrene changes in the right foot second toe. acute dactylitis right foot second toe. Secondary to trauma about 3 months ago. Was treated a month ago with IV Unasyn and the course of Augmentin. It had improved.: Currently not improving Osteomyelitis ruled out. Wound culture: Polymicrobial IV Unasyn. January 31: Amputation - Dr. Romero. ID following Dressing change with Aquacel per vascular -Chronic medical debility from underlying Maksim ataxia Chronically uses a wheelchair. -Chronic nicotine dependence, cigarette smoker Nicotine patch -Recreational use of marijuana -Maksim ataxia -Full code Stable. Hopefully discharge tomorrow. Past Medical History Additional Past Medical History / Comment(s): ataxia, wheelchair bound, History of Any Multi-Drug Resistant Organisms: None Reported Past Surgical History: No Surgical Hx Reported Past Anesthesia/Blood Transfusion Reactions: No Reported Reaction Past Psychological History: ADD/ADHD, Bipolar Smoking Status: Current every day smoker Past Alcohol Use History: Occasional Past Drug Use History: Marijuana Medications and Allergies Home Medications Medication Instructions Recorded Confirmed Type Aspirin EC [Ecotrin Low Dose] 243 mg PO TID 12/21/22 01/30/23 History Acetaminophen Tab [Tylenol] 650 mg PO Q6HR PRN tab 12/23/22 01/30/23 Rx hydroCHLOROthiazide 12.5 mg PO DAILY 01/30/23 01/30/23 History Allergies Allergy/AdvReac Type Severity Reaction Status Date / Time No Known Allergies Allergy Verified 01/30/23 12:46
--- NOTE | 2023-02-03 14:51 | P.PN ---
Subjective Progress Note Date: 02/03/23 Principal diagnosis: Right second toe infection Patient is a 27-year-old male with a past medical history significant for ataxia ADHD bipolar disorder who was recently admitted at this facility with a right second toe wound and cellulitis culture positive for MSSA and the patient has been treated with a course of Augmentin followed by Keflex, did have initial improvement now presented to hospital worsening discoloration swelling redness. Patient is status post right second toe amputation on 01/31/2023 On today's evaluation that is 02/03/2023, the patient is afebrile, the patient is breathing comfortably , the patient denies chest pain and no significant cough, the patient denies nausea and vomiting no abdominal pain and no diarrhea, the patient denies any worsening pain to the right second toe amputation site wound Patient did have white count of 6.6 creatinine 0.94 as of 02/02/2023, local cultures currently pending blood culture so far negative. Objective - Vital Signs Vital signs: Vital Signs Temp 98.3 F 02/03/23 07:44 Pulse 95 02/03/23 07:44 Resp 18 02/03/23 09:53 BP 105/68 02/03/23 07:44 Pulse Ox 95 02/03/23 07:44 FiO2 Intake & Output 02/02/23 02/03/23 02/03/23 18:59 06:59 18:59 Output Total 1500 600 Balance -1500 -600 Output: Urine 1500 600 Other: # Voids 2 1 - Exam GENERAL DESCRIPTION: Middle-age male lying in bed in no distress RESPIRATORY SYSTEM: Unlabored breathing , decreased breath sounds at bases HEART: S1 S2 regular rate and rhythm , ABDOMEN: Soft , no tenderness EXTREMITIES: Right second toe amputation site wound base clean with no slough tissue or surrounding redness - Labs CBC & Chem 7: 02/02/23 06:40 02/02/23 06:40 Labs: Microbiology - Last 24 Hours (Table) 01/30/23 00:25 Blood Culture - Preliminary Blood 01/30/23 00:03 Blood Culture - Preliminary Blood Assessment and Plan (1) Cellulitis of toe of right foot Current Visit: No Status: Acute Code(s): L03.031 - CELLULITIS OF RIGHT TOE SNOMED Code(s): 22583956 (2) Ulcer of toe of right foot Current Visit: No Status: Acute Code(s): L97.519 - NON-PRS CHRONIC ULCER OTH PRT RIGHT FOOT W UNSP SEVERITY SNOMED Code(s): 56132744133380519 Plan: 1patient presented to the hospital right second toe discoloration in this patient with necrotic changes on the dorsal lateral right foot With associated cellulitis patient x-ray did shows soft tissue swelling and gas likely he will need to cover for the polymicrobial shanika usually associated with this type of infection with the last culture positive for MSSA 2Patient has been evaluated by vascular surgery and patient is status post amputation of the second toe, culture have been negative so far 3plan is to continue the patient on Unasyn for another 24-48 hour before transitioning him to oral antibiotics, once cleared by vascular surgery Dictation was produced using [employer] dictation software. please excuse any grammatical, word or spelling errors. Time with Patient: Less than 30
--- NOTE | 2023-02-03 17:49 | PN ---
PROGRESS NOTE A 27-year-old gentleman, who had the second toe ray amputation. The patient is on IV antibiotic under the care of Infectious Disease. Local wound care. Dressing has been changed today with Aquacel Silver. Base of the wound is granulating. We will continue with IV antibiotic. If the patient goes home, we will follow in the wound clinic. MMODL / IJN: [id number] /
[2023-02-04] MEDS: AMPICILLIN-SULBACTAM 3 GM in SODIUM CHLORIDE 0.9% 100 ML IVPB SCH ×3 (00:44→12:15)
[2023-02-04] MEDS: SODIUM CHLORIDE 0.9% 1,000 ML IV SCH (06:43)
[2023-02-04 08:56] VITALS: BMI 28.5
[2023-02-04] MEDS: traMADol 50 MG TAB PO PRN (10:10)
[2023-02-04] MEDS: ENOXAPARIN 40 MG/0.4 ML SYRINGE SQ SCH (10:10)
[2023-02-04] MEDS: ASPIRIN 81 MG PO SCH (10:10)
[2023-02-04] MEDS: NICOTINE 21MG/24HR PATCH TRANSDERM SCH (10:16)
--- NOTE | 2023-02-04 11:16 | PN ---
PROGRESS NOTE 57-year-old gentleman who came with gangrene of the right foot second toe. The patient went for ray amputation. We will treat him with IV antibiotic and local wound care and care of Infectious Disease. We have changed the dressing today. The incision site is clean and no discharge or redness noted. We will continue with IV antibiotic and if the patient goes home, we will follow up in the wound clinic. MMODL / IJN: [id number] /
[2023-02-04 15:26] VITALS: RESP 18
--- NOTE | 2023-02-04 15:26 | P.PN ---
Subjective Progress Note Date: 02/04/23 Principal diagnosis: Right second toe infection Patient is a 27-year-old male with a past medical history significant for ataxia ADHD bipolar disorder who was recently admitted at this facility with a right second toe wound and cellulitis culture positive for MSSA and the patient has been treated with a course of Augmentin followed by Keflex, did have initial improvement now presented to hospital worsening discoloration swelling redness. Patient is status post right second toe amputation on 01/31/2023 On today's evaluation that is 02/04/2023, the patient remains to be afebrile, the patient is breathing comfortably , the patient denies chest pain and no significant cough, the patient denies nausea and vomiting no abdominal pain and no diarrhea,, the patient denies any worsening pain to the right second toe amputation site wound Patient did have white count of 6.6 creatinine 0.94 as of 02/02/2023, local cultures currently negative blood culture so far negative. Objective - Vital Signs Vital signs: Vital Signs Temp 98.0 F 02/04/23 07:28 Pulse 92 02/04/23 07:28 Resp 18 02/04/23 10:26 BP 111/71 02/04/23 07:28 Pulse Ox 96 02/04/23 08:23 FiO2 Intake & Output 02/03/23 02/04/23 02/04/23 18:59 06:59 18:59 Output Total 1250 650 Balance -1250 -650 Weight 117.934 kg Output: Urine 1250 650 Other: Voiding Method Urinal # Voids 1 - Exam GENERAL DESCRIPTION: Middle-age male lying in bed in no distress RESPIRATORY SYSTEM: Unlabored breathing , decreased breath sounds at bases HEART: S1 S2 regular rate and rhythm , ABDOMEN: Soft , no tenderness EXTREMITIES: Right second toe amputation site wound base clean with no slough tissue or surrounding redness - Labs CBC & Chem 7: 02/02/23 06:40 02/02/23 06:40 Assessment and Plan (1) Cellulitis of toe of right foot Status: Acute Code(s): L03.031 - CELLULITIS OF RIGHT TOE SNOMED Code(s): 67688100 (2) Ulcer of toe of right foot Status: Acute Code(s): L97.519 - NON-PRS CHRONIC ULCER OTH PRT RIGHT FOOT W UNSP SEVERITY SNOMED Code(s): 90101708042736920 Plan: 1patient presented to the hospital right second toe discoloration in this patient with necrotic changes on the dorsal lateral right foot With associated cellulitis patient x-ray did shows soft tissue swelling and gas likely he will need to cover for the polymicrobial shanika usually associated with this type of infection with the last culture positive for MSSA 2Patient has been evaluated by vascular surgery and patient is status post amputation of the second toe, culture have been negative so far 3-patient seemed to have shown clinical improvement culture has been negative for any resistant pathogen we will finish therapy with oral Augmentin and close outpatient follow-up Dictation was produced using [employer] dictation software. please excuse any grammatical, word or spelling errors. Time with Patient: Less than 30
[2023-02-04 15:32] VITALS: BP 110/72; PULSE 100; TEMP 98.1
--- NOTE | 2023-02-04 17:19 | P.DS ---
Providers Date of admission: 01/30/23 05:01 Expected date of discharge: 02/04/23 Attending physician: Shen Suarez Consults: 01/30/23 05:24 Consult Physician Urgent Consulting Provider: Miley Vo Consult Reason/Comments: nonhealing r 2nd toe infection. LLE swelling and ulceration Do you want consulting provider notified?: Yes 01/30/23 14:31 Consult Physician Routine Consulting Provider: Ovi Cabral Consult Reason/Comments: r 2nd toe gangrene Do you want consulting provider notified?: Yes [facility] Course: Chief Complaint: Right foot second toe infection This is a 27-year-old patient who follows with Dr. Louis Rachel. Patient has long-standing Maksim ataxia. does use a wheelchair to get about. Does smoke about half a pack a day and does marijuana half a joint daily. Lives with his grandfather. Patient is here from December 22 through December 23.-Then Patient hit his foot against the site of a bunk bed. Progressively the toe was covered discolored. Some drainage. Denies any fever and chills. It is painful. He went to see a clerk telegraph service and was sent to the ER. IV Unasyn. Seen by Dr. Wagner from ID and Dr. Romero from vascular. discharged on Augmentin for 10 days. Patient did follow up with ID outpatient. Second toe was actually improving. Last 3 weeks started getting worse. Discolored and boggy some discomfort. Denied any fever and chills. Appetite fair. January 31: Seen by me this morning. Nothing by mouth. Pending re- amputation. No new symptoms. On IV Unasyn. February 01: Status post amputation by Dr. Romero yesterday. This morning sitting up in bed. Comfortable. No pain. Did tolerate his meals. IV Unasyn. Local wound care per Dr. Romero. Patient counseled about smoking. February 02: Comfortable. Pain control. Dressing change Dr. Romero today. Cultures growing multiple shanika. IV Unasyn. Eating well. February 03: Pain control. Tolerated diet. Getting IV Unasyn. Hoping for discharge tomorrow. February 04: Doing well. Eating well. Cleared by ID and surgery to be discharged. Augmentin for 1 week per ID. Wound care per Dr. Romero in follow- up in the wound care center. Discussed with patient. Counseled again about smoking. Past medical history to include: Maksim ataxia. Bipolar. Uses a wheelchair Social history: Lives with grandfather. Smokes half a packet of cigarettes a day. Does marijuana half a joint a day. Physical examination: VITAL SIGNS: 98.1, 100, 18, 110/72, 97% room air GENERAL: Eating up in bed comfortable EYES: Pupils equal. Conjunctiva normal. HEENT: External appearance of nose and ears normal, oral cavity grossly normal. NECK: JVD not raised; masses not palpable. HEART: First and second heart sounds are normal; no edema. LUNGS: Respiratory rate normal; clear to auscultation. ABDOMEN: Soft, nontender, liver spleen not palpable, no masses palpable. PSYCH: Alert and oriented x3; mood and affect normal. MUSCULOSKELETAL:No Clubbing/cyanosis;muscles-grossly intact. Right foot in a dressing NEUROLOGICAL: Slightly slow speech. Some weakness of lower extremity.]. INVESTIGATIONS, reviewed in the clinical context: February 02: White count 6.6 hemoglobin 14 platelets 1:30 potassium 4.5 creatinine 0.94 Wound culture: Polymicrobial January 30: White count 7.2 hemoglobin 15.9 platelets 169 sodium 135 potassium 4.4 BUN 13 creatinine 0.76 AST 64 ALT 65 EKG tracing personally reviewed by me-normal sinus rhythm. Nonspecific ST-T wave changes. Right foot x-ray film personally reviewed by meet: Some soft tissue swelling. Over the second digit. With gas and the medial aspect of the distal IP joint. No obvious bony destruction reported. Assessment and plan: -Acute wet gangrene changes in the right foot second toe. acute dactylitis right foot second toe. Secondary to trauma about 3 months ago. Was treated a month ago with IV Unasyn and the course of Augmentin. It had improved.: Currently not improving Osteomyelitis ruled out. Wound culture: Polymicrobial IV Unasyn. January 31: Amputation - Dr. Romero. ID following Dressing change with Aquacel per vascular-patient follow-up with Dr. Romero of the wound care center. Discharge in Augmentin 875 one tablet twice a day for 7 days -Chronic medical debility from underlying Maksim ataxia Chronically uses a wheelchair. -Chronic nicotine dependence, cigarette smoker Nicotine patch -Recreational use of marijuana -Maksim ataxia -Full code Disposition: Home Past Medical History Additional Past Medical History / Comment(s): ataxia, wheelchair bound, History of Any Multi-Drug Resistant Organisms: None Reported Past Surgical History: No Surgical Hx Reported Past Anesthesia/Blood Transfusion Reactions: No Reported Reaction Past Psychological History: ADD/ADHD, Bipolar Smoking Status: Current every day smoker Past Alcohol Use History: Occasional Past Drug Use History: Marijuana Plan - Discharge Summary Discharge Rx Participant: Yes New Discharge Prescriptions: New Nicotine 21Mg/24Hr Patch [Habitrol] 1 patch TRANSDERM DAILY #14 patch Amoxic-Pot Clav 875-125Mg [Augmentin 875-125] 1 tab PO BID 14 Days #28 tab Continue Aspirin EC [Ecotrin Low Dose] 243 mg PO TID Acetaminophen Tab [Tylenol] 650 mg PO Q6HR PRN tab PRN Reason: Mild Pain Or Fever > 100.5 Discontinued hydroCHLOROthiazide 12.5 mg PO DAILY Discharge Medication List Aspirin EC [Ecotrin Low Dose] 243 mg PO TID 12/21/22 [History] Acetaminophen Tab [Tylenol] 650 mg PO Q6HR PRN tab 12/23/22 [Rx] Amoxic-Pot Clav 875-125Mg [Augmentin 875-125] 1 tab PO BID 14 Days #28 tab 02/04/23 [Rx] Nicotine 21Mg/24Hr Patch [Habitrol] 1 patch TRANSDERM DAILY #14 patch 02/04/23 [Rx] Follow up Appointment(s)/Referral(s): Louis Rachel MD [Primary Care Provider] - 1-2 days (Office closed Tuesday. Please call office Tuesday for your appointment.) [facility] [NON-[facility]] - 1 Week ([facility] will call you to arrange a visit) Ovi Cabral MD [STAFF PHYSICIAN] - 02/10/23 11:30 am Miley Vo MD [STAFF PHYSICIAN] - 2 Weeks (Office closed Tuesday afternoon. Please call office Tuesday for appointment. Thank you.) Patient Instructions/Handouts: Toe Amputation (DC) Activity/Diet/Wound Care/Special Instructions: aquacel silver, then gauze wrap, and beverley q 48 hours. changed 02/04/23. sent home with supplies for multiple dressing changes. Discharge Disposition: HOME SELF-CARE
--- NOTE | 2023-02-08 11:12 | CDI ---
Documentation Clarification Form Date: 02/08/2023 11:05:49 AM From: Pearl Sorenson RN, CCDS Email: [email or web address] Admit Date: 01/30/2023 05:01:00 AM Patient Name: Louis Bonds Visit Number: [id number] Discharge Date: 02/04/2023 03:10:00 PM ATTENTION: The Clinical Documentation Specialists (CDI) and [facility] Coding Staff appreciate your assistance in clarifying documentation. Please respond to the clarification below the line at the bottom and electronically sign. The CDI & [facility] Coding staff will review the response and follow-up if needed. Please note: Queries are made part of the Legal Health Record. If you have any questions, please contact the author of this message via ITS. Dr. Shen Suarez Acute wet gangrene was documented in the H&P and progress notes. Based on this information and the findings below, is there an additional diagnosis that is clinically appropriate for this patient? Patient history/risk factors: Fredereich's ataxia, wheelchair bound. Presents to the ED with a chief complaint of right toe pain, swelling and ulceration. Recent admission on 12/21 due to right second toe discoloration with drainage after injury at home. Clinical Indicators: 01/30 Right foot x-ray: Soft tissue swelling overlying the metatarsals. Soft tissue swelling overlying the second digit with gas at the medial aspect of the distal interphalangeal joint. 01/30 H&P: "Right foot x-ray film personally reviewed by me. Some soft tissue swelling over the second digit with gas at the medial aspect of the distal IP joint. 01/30 ID: "patient x-ray did show soft tissue swelling and gas. Likely he will need to cover for the polymicrobial shanika usually associated with this type of infection with the last culture being positive for MSSA." 01/31 Op note/progress note: "Preop diagnosis is wet gangrene of the right foot second toe with gas-forming organism. S/P ray amputation of the right foot second toe." Treatment: S/P ray amputation of right second toe. IV Unasyn 3gm Q6H 01/30-02/04; IV Dilaudid 1mg x1 on 01/30 and IV Dilaudid 1mg IVP Q3H prn for severe pain. Is there an additional diagnosis that is clinically appropriate for this patient? [ + ] Gas gangrene [ ] No additional diagnosis/Not clinically significant [ ] Other, please specify [ ] Unable to determine MTDD
--- NOTE | 2023-02-23 14:34 | OP ---
OPERATIVE REPORT DATE OF SERVICE : 01/31/2023 PREOPERATIVE DIAGNOSIS: Infected gangrene right foot second toe. POSTOPERATIVE DIAGNOSIS: Infected gangrene right foot second toe. PROCEDURE PERFORMED: Amputation of the right foot 2nd toe. DESCRIPTION OF PROCEDURE: This patient was brought to the operating room under IV sedation and under 1% lidocaine infiltrated at the base of the 2nd toe the index incision was made on the dorsal aspect of the foot, deepened through skin fat and fascia and tendons were divided. Then incision was extended to the plantar aspect, deepened through skin fat and fascia and tendons were divided until we reached the metatarsophalangeal joint ligaments were divided and second toe was removed which was sent for deep culture. There was some vessel which were suture ligated. The wound was copiously irrigated with hydrogen peroxide and saline. Then incision was closed in 2 layers using 3-0 Vicryl and 4-0 nylon. Dressing applied. Patient tolerated the procedure well. MMODL / IJN: [id number] /
== END 2023-02-04 15:10 | disposition home or self-care (01) | DRG 255 ==
LOC: EC 22:54 → 4SSUR 01-30 05:01
PROVIDERS: ADMIT Hospitalist; ATTEND Hospitalist
PROC: 0Y6R0Z0 Detachment at Right 2nd Toe, Complete, Open Approach (ICD-10-PCS; principal; 2023-01-31 12:15)
DX: E11.52 Type 2 diabetes mellitus with diabetic peripheral angiopathy with gangrene (principal); A48.0 Gas gangrene; G11.11 Friedreich ataxia; E11.621 Type 2 diabetes mellitus with foot ulcer; F17.210 Nicotine dependence, cigarettes, uncomplicated; F31.9 Bipolar disorder, unspecified; F41.9 Anxiety disorder, unspecified; F90.9 Attention-deficit hyperactivity disorder, unspecified type; G47.00 Insomnia, unspecified; E11.41 Type 2 diabetes mellitus with diabetic mononeuropathy; L08.89 Other specified local infections of the skin and subcutaneous tissue; K59.00 Constipation, unspecified; L03.031 Cellulitis of right toe; L97.519 Non-pressure chronic ulcer of other part of right foot with unspecified severity; Z79.899 Other long term (current) drug therapy; Z99.3 Dependence on wheelchair; Z71.6 Tobacco abuse counseling
CPT/HCPCS: 36415; 80053; 81003; 83605; 84145; 85025; 86850; 86900; 86901; 87040; 87070; 87205; 88305; 88311; 93005; 94760; 96361; 96365; 96372; 96375; 96376; 99285

== ENCOUNTER 2023-09-21 16:13 | Emergency (ER) | payer MEDICARE, OTHER ==
[2023-09-21 16:54] VITALS: RESP 18; TEMP 97.7
--- NOTE | 2023-09-21 17:01 | ED ---
Skin/Abscess/FB HPI - General Chief complaint: Skin/Abscess/Foreign Body Stated complaint: Pain in L foot Time Seen by Provider: 09/21/23 16:33 Source: patient, RN notes reviewed Mode of arrival: ambulatory Limitations: no limitations - History of Present Illness Initial comments: This is a 28-year-old male presents emergency department chief complaint of pain of his left foot. Patient states that he has been experiencing pain over the last few weeks that has been worsening over the past 2 to 3 days. He is also noticed a ulcer and abscess forming on the inside of his second toe. He denies nausea, fevers, abdominal pain, lethargy. Patient has a history of MRSA infection which is led to subsequent amputation of digit on his right foot. Denies recent antibiotic use - Related Data Home Medications Medication Instructions Recorded Confirmed Aspirin EC [Ecotrin Low Dose] 243 mg PO TID 12/21/22 01/30/23 Previous Rx's Medication Instructions Recorded Acetaminophen Tab [Tylenol] 650 mg PO Q6HR PRN tab 12/23/22 Amoxic-Pot Clav 875-125Mg 1 tab PO BID 14 Days #28 tab 02/04/23 [Augmentin 875-125] Nicotine 21Mg/24Hr Patch [Habitrol] 1 patch TRANSDERM DAILY #14 patch 02/04/23 clindamycin HCL 300 mg PO QID #40 cap 09/21/23 Allergies Allergy/AdvReac Type Severity Reaction Status Date / Time No Known Allergies Allergy Verified 09/21/23 16:38 Review of Systems ROS Statement: Those systems with pertinent positive or pertinent negative responses have been documented in the HPI. ROS Other: All systems not noted in ROS Statement are negative. Past Medical History Additional Past Medical History / Comment(s): ataxia, wheelchair bound, History of Any Multi-Drug Resistant Organisms: MRSA Past Surgical History: No Surgical Hx Reported Past Anesthesia/Blood Transfusion Reactions: No Reported Reaction Past Psychological History: ADD/ADHD, Bipolar Smoking Status: Current every day smoker Past Alcohol Use History: Occasional Past Drug Use History: Marijuana General Exam Limitations: no limitations General appearance: alert, in no apparent distress Head exam: Present: atraumatic, normocephalic, normal inspection Eye exam: Present: normal appearance, PERRL, EOMI. Absent: scleral icterus, conjunctival injection, periorbital swelling ENT exam: Present: normal exam, mucous membranes moist Neck exam: Present: normal inspection. Absent: tenderness, meningismus, lymphadenopathy Respiratory exam: Present: normal lung sounds bilaterally. Absent: respiratory distress, wheezes, rales, rhonchi, stridor Cardiovascular Exam: Present: regular rate, normal rhythm, normal heart sounds. Absent: systolic murmur, diastolic murmur, rubs, gallop, clicks GI/Abdominal exam: Present: soft, normal bowel sounds. Absent: distended, tenderness, guarding, rebound, rigid Left Foot/Toe exam: Present: erythema (2nd digit ulceration and mild erythema, no purulence noted). Absent: full ROM, tenderness, swelling, laceration Neurovascular tendon exam: Present: no vascular compromise Back exam: Present: normal inspection Neurological exam: Present: alert, oriented X3, CN II-XII intact Psychiatric exam: Present: normal affect, normal mood Skin exam: Present: warm, dry, intact, normal color. Absent: rash Course Vital Signs 09/21/23 09/21/23 16:36 18:21 Temperature 97.7 F Pulse Rate 107 H 102 H Respiratory 18 18 Rate Blood Pressure 117/71 112/84 O2 Sat by Pulse 96 97 Oximetry Medical Decision Making - Medical Decision Making Was pt. sent in by a medical professional or institution (, PA, INSULATION SUPERVISOR, urgent care, hospital, or penitentiary...) When possible be specific @ -No Did you speak to anyone other than the patient for history (EMS, parent, family, police, friend...)? What history was obtained from this source @ -No Did you review nursing and triage notes (agree or disagree)? Why? @ -I reviewed and agree with nursing and triage notes Were old charts reviewed (outside hosp., previous admission, EMS record, old EKG, old radiological studies, urgent care reports/EKG's, penitentiary records)? Report findings @ -Previous charts reviewed patient underwent amputation due to MRSA infection Differential Diagnosis (chest pain, altered mental status, abdominal pain women, abdominal pain men, vaginal bleeding, weakness, fever, dyspnea, syncope, headache, dizziness, GI bleed, back pain, seizure, CVA, palpatations, mental health, musculoskeletal)? @ -Cellulitis, abscess, ulcer, skin infection, this list is not all inclusive. EKG interpreted by me (3pts min.). @ -None X-rays interpreted by me (1pt min.). @ -xray of the left foot reveals no evidence for osteomyelitis with mild soft tissue swelling of the great toe with no evidence for acute fracture CT interpreted by me (1pt min.). @ -None done U/S interpreted by me (1pt. min.). @ -None done What testing was considered but not performed or refused? (CT, X-rays, U/S, labs)? Why? @ -None What meds were considered but not given or refused? Why? @ -None Did you discuss the management of the patient with other professionals (professionals i.e. , PA, INSULATION SUPERVISOR, lab, RT, psych nurse, forensic social worker, agile business analyst, teacher, homicide squad commanding officer, director case management)? Give summary @ -No Was smoking cessation discussed for >3mins.? @ -No Was critical care preformed (if so, how long)? @ -No Were there social determinants of health that impacted care today? How? (Homelessness, low income, unemployed, alcoholism, drug addiction, transportation, low edu. Level, literacy, decrease access to med. care, prison, rehab)? @ -No Was there de-escalation of care discussed even if they declined (Discuss DNR or withdrawal of care, Hospice)? DNR status @ -No What co-morbidities impacted this encounter? (DM, HTN, Smoking, COPD, CAD, Cancer, CVA, ARF, Chemo, Hep., AIDS, mental health diagnosis, sleep apnea, morbid obesity)? @ -None Was patient admitted / discharged? Hospital course, mention meds given and route, prescriptions, significant lab abnormalities, going to OR and other pertinent info. @ -Discharge. 28-year-old male with complaint of left foot pain. On examination patient noted to have a ulcer between his first and second left digit. Patient has pain with ambulation. There is mild erythema with no purulence noted. At this time blood work was obtained in addition to x-ray. Patient CBC unremarkable for signs of leukocytosis or acute infection. Additionally, CMP unremarkable. xray not concerning for further infection. This time, patient will be discharged home on oral antibiotics to cover for cellulitis. Strict return parameters discussed with the patient. He is in agreement with this. Recommend the patient follows up with her primary care provider within the next 3 days for further evaluation of abscess. Case discussed with Dr. Jeffers Undiagnosed new problem with uncertain prognosis? @ -No Drug Therapy requiring intensive monitoring for toxicity (Heparin, Nitro, Insulin, Cardizem)? @ -No Were any procedures done? @ -No Diagnosis/symptom? @ -Cellulitis Acute, or Chronic, or Acute on Chronic? @ -Acute Uncomplicated (without systemic symptoms) or Complicated (systemic symptoms)? @ -uncomplicated Side effects of treatment? @ -No Exacerbation, Progression, or Severe Exacerbation? @ -No Poses a threat to life or bodily function? How? (Chest pain, USA, NE, pneumonia, PE, COPD, DKA, ARF, appy, cholecystitis, CVA, Diverticulitis, Homicidal, Suicidal, threat to staff... and all critical care pts) @ -No - Lab Data Result diagrams: 09/21/23 17:16 09/21/23 17:16 Lab Results 09/21/23 09/21/23 09/21/23 Range/Units 17:16 17:16 17:16 WBC 7.6 (3.8-10.6) k/uL RBC 5.54 (4.30-5.90) m/uL Hgb 17.0 (13.0-17.5) gm/dL Hct 51.7 (39.0-53.0) % MCV 93.3 (80.0-100.0) fL MCH 30.7 (25.0-35.0) pg MCHC 32.9 (31.0-37.0) g/dL RDW 13.3 (11.5-15.5) % Plt Count 186 (150-450) k/uL MPV 8.6 Neutrophils % 58 % Lymphocytes % 31 % Monocytes % 5 % Eosinophils % 4 % Basophils % 1 % Neutrophils # 4.4 (1.3-7.7) k/uL Lymphocytes # 2.4 (1.0-4.8) k/uL Monocytes # 0.4 (0-1.0) k/uL Eosinophils # 0.3 (0-0.7) k/uL Basophils # 0.1 (0-0.2) k/uL PT 10.6 (10.0-12.5) sec INR 1.0 (<1.2) APTT 27.2 (22.0-30.0) sec Sodium 141 (137-145) mmol/L Potassium 4.1 (3.5-5.1) mmol/L Chloride 105 (98-107) mmol/L Carbon Dioxide 25 (22-30) mmol/L Anion Gap 11 mmol/L BUN 9 (9-20) mg/dL Creatinine 0.76 (0.66-1.25) mg/dL Est GFR (CKD-EPI)AfAm >90 (>60 ml/min/1.73 sqM) Est GFR (CKD-EPI)NonAf >90 (>60 ml/min/1.73 sqM) Glucose 66 L (74-99) mg/dL Calcium 9.9 (8.4-10.2) mg/dL Total Bilirubin 0.5 (0.2-1.3) mg/dL AST 29 (17-59) U/L ALT 42 (4-49) U/L Alkaline Phosphatase 77 (38-126) U/L Total Protein 8.1 (6.3-8.2) g/dL Albumin 4.7 (3.5-5.0) g/dL Disposition Clinical Impression: Soft tissue infection of foot, History of MRSA infection Narrative: Please return to the Emergency Department if symptoms worsen or any other concerns. Complete full course of antibiotics as prescribed. Follow-up with your primary care provider within the next 3 to 5 days for further evaluation. Disposition: HOME SELF-CARE Condition: Good Instructions (If sedation given, give patient instructions): MRSA (Methicillin- Resistant Staphylococcus Aureus) (ED) Prescriptions: clindamycin HCL 300 mg PO QID #40 cap Is patient prescribed a controlled substance at d/c from ED?: No Referrals: Louis Rachel MD [Primary Care Provider] - 1-2 days Time of Disposition: 17:52
[2023-09-21 17:25] LABS: Basophils # (A) 0.1 k/uL (0-0.2); Basophils % (A) 1 %; Eosinophils # (A) 0.3 k/uL (0-0.7); Eosinophils % (A) 4 %; HCT 51.7 % (39.0-53.0); Lymphocytes # (A) 2.4 k/uL (1.0-4.8); Lymphocytes % (A) 31 %; MCH 30.7 pg (25.0-35.0); MCHC 32.9 g/dL (31.0-37.0); MCV 93.3 fL (80.0-100.0); Mean Platelet Volume 8.6; Monocytes # (A) 0.4 k/uL (0-1.0); Monocytes % (A) 5 %; Neutrophils # (A) 4.4 k/uL (1.3-7.7); Neutrophils % (A) 58 %; Platelet Count 186 k/uL (150-450); RBC 5.54 m/uL (4.30-5.90); RDW 13.3 % (11.5-15.5); WBC 7.6 k/uL (3.8-10.6)
[2023-09-21 17:36] LABS: ALT 42 U/L (4-49); AST 29 U/L (17-59); African American GFR (CKD) >90 (>60 ml/min/1.73 sqM); Albumin 4.7 g/dL (3.5-5.0); Alkaline Phosphatase 77 U/L (38-126); Anion Gap 11 mmol/L; Blood Urea Nitrogen 9 mg/dL (9-20); Calcium 9.9 mg/dL (8.4-10.2); Carbon Dioxide 25 mmol/L (22-30); Chloride 105 mmol/L (98-107); Glucose 66 mg/dL (74-99); Non-African American GFR(CKD) >90 (>60 ml/min/1.73 sqM); Potassium 4.1 mmol/L (3.5-5.1); Sodium 141 mmol/L (137-145); Total Bilirubin 0.5 mg/dL (0.2-1.3); Total Protein 8.1 g/dL (6.3-8.2)
[2023-09-21 17:37] LABS: Partial Thromboplastin Time 27.2 sec (22.0-30.0); Prothrombin Time 10.6 sec (10.0-12.5)
--- NOTE | 2023-09-21 17:37 | XR ---
EXAMINATION TYPE: XR foot complete LT DATE OF EXAM: 09/21/2023 5:23 PM CLINICAL INDICATION:Male, 28 years old with history of infection; [facility] COMPARISON: 01/30/2023. TECHNIQUE: XR foot complete LT examined in the AP, oblique, and lateral projections. FINDINGS: No evidence of any acute osseous pathology. Mild soft tissue swelling the first digit. Joints are pr eserved. No evidence for osseous erosion. IMPRESSION: 1. No evidence for osteomyelitis. Mild soft tissue swelling of the great toe. 2. No evidence of acute fracture.
[2023-09-21] MEDS: Acetaminophen-Codeine 300-30mg TAB PO STA (18:19)
[2023-09-21 18:24] VITALS: BP 112/84; PULSE 102
== END 2023-09-21 18:28 | disposition home or self-care (01) ==
LOC: EC 16:13
DX: L03.116 Cellulitis of left lower limb (principal); F17.200 Nicotine dependence, unspecified, uncomplicated; Z86.14 Personal history of Methicillin resistant Staphylococcus aureus infection
CPT/HCPCS: 36415; 80053; 85025; 85610; 85730; 99284